=== PATIENT | male | born 1930 ===

== ENCOUNTER 2019-05-30 23:52 | Inpatient (IN) ==
[2019-05-31 00:54] LABS: Basophils # (auto) 0.03 K/uL (0-0.2); Basophils % (auto) 0.5 %; Eosinophils # (auto) 0.13 K/uL (0-0.5); Eosinophils % (auto) 2.1 %; Hematocrit (blood only) 37.8 % (42-52); Hemoglobin 12.7 g/dL (14.0-18.0); Immature Granulocytes # (auto) 0.02 K/uL (0.00-0.02); Immature Granulocytes % (auto) 0.3 %; Lymphocytes # (auto) 2.46 K/uL (1.2-3.4); Lymphocytes % (auto) 40.3 %; Mean Corpuscular Hemoglobin 31.4 pg (25-34); Mean Corpuscular Hgb Conc 33.6 g/dL (32-36); Mean Corpuscular Volume 93.6 fL (80-100); Mean Platelet Volume 10.3 fL (7.4-10.4); Monocytes % (auto) 13.1 %; Neutrophils # (auto) 2.67 K/uL (1.4-6.5); Neutrophils % (auto) 43.7 %; Platelet Count 215 K/uL (130-400); RDW Coefficient of Variation 13.2 % (11.5-14.5); RDW Standard Deviation 45.5 fL (36.4-46.3); Red Blood Count 4.04 M/uL (4.7-6.1); White Blood Count 6.11 K/uL (4.8-10.8)
[2019-05-31 01:05] LABS: Partial Thromboplastin Time 26.4 Seconds (21.0-31.0); Prothrombin Time 10.4 Seconds (9.0-12.0)
[2019-05-31 01:18] LABS: Alanine Aminotransferase 21 U/L (12-78); Albumin Level 3.5 gm/dl (3.4-5.0); Alkaline Phosphatase 61 U/L (45-117); Aspartate Aminotransferase 18 U/L (15-37); BUN Creatinine Ratio 18.3 (10-20); Bilirubin,Total 0.6 mg/dl (0.2-1); Blood Urea Nitrogen 15 mg/dl (7-18); Calcium 9.2 mg/dl (8.5-10.1); Carbon Dioxide 29 mmol/L (21-32); Chloride 100 mmol/L (98-107); Creatinine Clr Calc Pharmacy 43.6 ml/min; Est GFR (Non-African American) 79.4; Globulin 3.6 gm/dl (2.5-4.0); Glucose 86 mg/dl (70-99); Magnesium 2.2 mg/dl (1.8-2.4); Potassium 4.9 mmol/L (3.5-5.1); Sodium 135 mmol/L (136-145); Total Protein 7.1 gm/dl (6.4-8.2); Troponin I < 0.015 ng/ml (0-0.045)
[2019-05-31] MEDS ORDERED: PHARMACIST DISCHARGE MED REC CONSULT PRN (03:46)
[2019-05-31] MEDS ORDERED: ACETAMINOPHEN 325 MG TAB PO PRN (03:46)
[2019-05-31] MEDS ORDERED: NITROGLYCERIN SL 0.4 MG/TAB TAB SL PRN (03:46)
[2019-05-31] MEDS ORDERED: POLYETHYLENE (MIRALAX) 17 GM PACK PO PRN (03:46)
[2019-05-31] MEDS ORDERED: ONDANSETRON INJ 2 MG/ML 2 ML VIAL IV PRN (03:46)
--- NOTE | 2019-05-31 04:45 | Emergency Department Note ---
Entered by Darius Allen acting as a scribe for History of Present Illness General Chief complaint: Leg Weakness, Bilateral Stated complaint: LEG WEAKNESS Time Seen by Provider: 05/30/19 23:55 Source: family History of Present Illness Onset (ago): hour(s) (12) Location: lower extremity, left and right Pain Consistency: + other (worsening) Quality: + other (weakness) Associated symptoms: + denies other symptoms (difficulty eating, difficulty drinking, and difficulty swallowing) and + other (dyness in the mouth) The patient is an 89 y/o male who presents to the ED w/ CC of worsening, bilateral leg weakness beginning 12 hours ago. The patient is able to understand Surinamese but has difficulty speaking it. The history was presented by his farhan bynum. She states the patient is normally very active and does exercises daily. The daughter reports 12 hours ago he had weakness in his legs and could not lift his legs or balance on his own. She notes he was also not able to walk. The daughter states he had a period later in the day where he was able to walk with the assistance of his . She notes since then, his weakness has worsened, and he tells her it is equal in his legs. She reports he normally walks with a cane. The daughter notes he is also complaining of dryness of the mouth. She states he is acting at baseline neurologically. The daughter reports he is right handed. She notes his PCP is Dr. Quezada. The daughter denies a past medical and surgical history, difficulty eating, difficulty drinking, and difficulty swallowing. Home Medications Home Medications Medication Instructions Recorded Confirmed Type calcium carbonate [Calcium 600] 600 mg PO DAILY 05/31/19 05/31/19 History spanglsx-qmn-sctil-vit K-lycop 1 tab PO DAILY 05/31/19 05/31/19 History [Men's 50 Plus Multivitamin] Allergies Allergy/AdvReac Type Severity Reaction Status Date / Time No Known Allergies Allergy Verified 05/31/19 00:22 Past Med/Surg History Medical History No pertinent past medical history Surgical History No pertinent past surgical history Family History Other No pertinent family history Social History Preferred Language: Other Beliefs That Will Affect Care: None Current Living Situation: Family Feels Safe at Home: Yes Safety Concerns: Feels Safe At This Time Smoking Status: Never smoker Hx Alcohol Use: No Hx Substance Use: No Review of Systems See HPI for pertinent positives & negatives. and A total of 10 systems reviewed and were otherwise negative Physical Exam Vital Signs Vital Signs - 24 hr 05/30/19 23:59 05/31/19 01:28 Temperature 36.5 C Temperature Source Oral Sepsis Recent Fever Within 48 Hours No Sepsis New/Unexplained Change in Mental Status No Sepsis Action Taken by Nursing No Action Required Pulse Rate 70 Pulse Rate [Right Finger] 65 Pulse Rhythm Regular Pulse Rhythm [Right Finger] Regular Pulse Strength Normal Pulse Strength [Right Finger] Normal Respiratory Rate 16 16 Respiratory Effort / Characteristics Non-Labored Non-Labored Respiratory Depth Normal Normal Respiratory Pattern Regular Regular Blood Pressure 185/105 H Blood Pressure [Right Arm] 167/90 H Blood Pressure Mean 131 Blood Pressure Mean [Right Arm] 115 Blood Pressure Position [Right Arm] Lying Pulse Oximetry 98 98 Oxygen Delivery Method Room Air Room Air HEENT: Head - normocephalic and atraumatic. Pupils are equal, round, and reactive to light. Extraocular eye muscles are intact and sclera are anicteric. Ears - bilaterally patent canals with noninjected tympanic membranes and no evidence of hemotympanum. Nose - moist nasal mucosa without discharge. Mouth - moist buccal mucosa. Oropharynx is nonerythematous and there is no tonsillar exudate or edema noted. Neck: Supple; no JVD, nuchal rigidity, cervical lymphadenopathy, or auscultated bruits. Heart: Regular rate and rhythm. There is a normal S1 and S2 with no murmurs, clicks, or gallops appreciated. Lungs: Clear to auscultation bilaterally with no wheezes, rales, or rhonchi. Abdomen: Soft, completely nontender, nondistended, with good bowel sounds. There are no palpable pulsatile masses or hepatosplenomegaly. There is no guarding, rigidity, or rebound noted. Extremities: No evidence of cyanosis, clubbing, or edema. There are easily palpable peripheral pulses. Neuro:The patient is awake and alert, oriented to day, time, and place. Muscle strength is 5/5 in all 4 extremities. The patient has equal e learning manager strength and equal pedal push and pull. There are no cerebellar signs. Cranial nerves 2-12 are intact. Patient appears unsteady with ambulation although he is easily able to toe walk. Course 0004: The patient was evaluated in room A10. A complete history and physical examination were performed. A stroke protocol was performed. Nursing notes and previous electronic medical records were reviewed. IV lock was established and labs were drawn as above. The patient will go for CT scan of the brain. 0157: Upon reevaluation, I discussed findings and results with the patient and h is family. They verbalized agreement of the treatment plan. The patient will be evaluated for further management and care. 0202: I spoke with Dr. Pederson of the [facility]. The patient will be evaluated for further management and care. Medical Decision Making Differential Diagnosis Differential diagnosis includes: stroke, electrolyte abnormality, hypoglycemia, hydrocephalus. Medical Records Attestation: I reviewed the patient's medical records. Home Medications Current Medication List: was personally reviewed by me Laboratory Data Attestation: I reviewed the patient's lab results. Result diagrams: 05/31/19 00:37 05/31/19 00:37 Lab Results 05/31/19 05/31/19 05/31/19 Range/Units 00:37 00:37 00:37 WBC 6.11 (4.8-10.8) K/uL RBC 4.04 L (4.7-6.1) M/uL Hgb 12.7 L (14.0-18.0) g/dL Hct 37.8 L (42-52) % MCV 93.6 (80-100) fL MCH 31.4 (25-34) pg MCHC 33.6 (32-36) g/dL RDW Std Deviation 45.5 (36.4-46.3) fL RDW Coeff of Collin 13.2 (11.5-14.5) % Plt Count 215 (130-400) K/uL MPV 10.3 (7.4-10.4) fL Immature Gran % (Auto) 0.3 % Neut % (Auto) 43.7 % Lymph % (Auto) 40.3 % Duc[place]ne % (Auto) 13.1 % Eos % (Auto) 2.1 % Baso % (Auto) 0.5 % Immature Gran # (Auto) 0.02 (0.00-0.02) K/uL Neut # (Auto) 2.67 (1.4-6.5) K/uL Lymph # (Auto) 2.46 (1.2-3.4) K/uL [place]ne # (Auto) 0.80 H (0.11-0.59) K/uL Eos # (Auto) 0.13 (0-0.5) K/uL Baso # (Auto) 0.03 (0-0.2) K/uL PT 10.4 (9.0-12.0) Seconds INR 1.0 (0.9-1.1) APTT 26.4 (21.0-31.0) Seconds PTT Ratio 1.0 Sodium 135 L (136-145) mmol/L Potassium 4.9 (3.5-5.1) mmol/L Chloride 100 (98-107) mmol/L Carbon Dioxide 29 (21-32) mmol/L Anion Gap 6.0 (3-11) BUN 15 (7-18) mg/dl Creatinine 0.81 (0.6-1.4) mg/dl Est Cr Clr Drug Dosing 43.6 ml/min Est GFR ( Amer) 92.0 Est GFR (Non-Af Amer) 79.4 BUN/Creatinine Ratio 18.3 (10-20) Glucose 86 (70-99) mg/dl Calcium 9.2 (8.5-10.1) mg/dl Magnesium 2.2 (1.8-2.4) mg/dl Total Bilirubin 0.6 (0.2-1) mg/dl AST 18 (15-37) U/L ALT 21 (12-78) U/L Alkaline Phosphatase 61 (45-117) U/L Troponin I < 0.015 (0-0.045) ng/ml Total Protein 7.1 (6.4-8.2) gm/dl Albumin 3.5 (3.4-5.0) gm/dl Globulin 3.6 (2.5-4.0) gm/dl Albumin/Globulin Ratio 1.0 (0.9-2) Specimen Hemolysis Imaging Data Radiologist's Impression: Radiology results as stated below per my review and the [facility] radiologist's interpretation: CT HEAD: Involutional and chronic small vessel ischemic changes. No ICH, mass effect, or edema. No evidence of acute territorial infarct. No skull fracture. Sinuses and mastoid air cells are clear. Radiologist: Renetta Ayala M.D. Study ready at 00:56 and initial results transmitted at 01:14 ECG Data Attestation: I personally reviewed and interpreted this ECG as follows: Indication: weakness Rate (beats per minute): 68 Rhythm: normal sinus Findings: no PAC, no PVC, no ST depression, no ST elevation, no acute ischemic change and no ectopy Blood Pressure Blood Pressure Findings: Elevated blood pressure Blood Pressure Disposition: further management by hospitalist MDM Narrative The patient is an 89 y/o male who presents to the ED w/ CC of worsening, giuliana ateral leg weakness beginning 12 hours ago. The patient is normally very active and ambulates without much difficulty. He does use a cane. The family noted over the past 12-24 hours that the patient was quite unsteady on his feet and had to hold onto things to get around. He described feeling weak in his legs. CT scan of the brain was unremarkable. On my neurological testing, the patient's muscle strength the pedal push and pull was completely normal. He was able to stand on his toes without heel drop. However, when we attempted to ambulate the patient, he was only able to move about with a shuffling gait. This is abnormal for him. He had no upper extremity weakness noted. I discussed the case with the [facility] Hospitalist and they will evaluate for further management. Impression & Plan Gait instability, Complaints of leg weakness Discharge Plan Visit Data *Final* Discharge Date/Time: 05/31/19 03:10 Chief Complaint: Leg Weakness, Bilateral Stated Complaint: LEG WEAKNESS ED Provider: Abby Quintanilla Discharge Problem: Gait instability, Complaints of leg weakness Patient Disposition: Admitted As Inpatient Discharge Instructions Interventions: ED Discharge Assessment Last Done: 05/31/19 03:10 The scribe's documentation has been prepared under my direction and personally r eviewed by me in its entirety. I confirm that the note above accurately reflects all work, treatment, procedures, and medical decision making performed by me.
--- NOTE | 2019-05-31 04:57 | History and Physical Report ---
DATE OF ADMISSION: 05/31/2019 CHIEF COMPLAINT: Bilateral leg weakness. HISTORY OF PRESENT ILLNESS: This is an 89-year-old male with no significant past medical history, not on any medications except for multivitamins, who is otherwise active. Presents with ambulatory dysfunction, bilateral lower extremity weakness starting around 12:00 afternoon on 05/30/2019. The patient lives with daughter and . As per the family, the patient goes for shopping, daily walking and exercises. He is a little slow with age, but he can get around okay, he can walk fine, but since the afternoon he suddenly felt like he could not walk and he could not stand up properly. He was able to walk in the ER with assistance, but on his own, he is having difficulty ambulating. He has some head pressure, but denies any headache. Earlier, he had some dizziness. Denies any blurred visions, no earache, no runny nose, no sore throat, no difficulty swallowing. He ate his dinner okay. Swallowing okay. Speech is clear. No cough. No recent fever, chills. No chest pain, no shortness of breath, no nausea, no vomiting, no abdominal pain. Normal bowel and bladder movements. Moved his bowels today evening. Cooper some pressure like feeling in the belly, but is able to move his bowels, no blood in the stools. Normal bladder movements. No hematuria, no burning micturition, no swelling. Says once in a while he gets leg swellings, but keeping the legs elevated the swelling goes down and currently there is no swelling, no rash. He does not bleed or bruise easily.Denies any back pain. Recently also on 04/30/2019, last month, he had a carotid Doppler which showed less than 50% stenosis of both the right and left internal carotid artery. Currently resting comfortably and hemodynamically stable except blood pressure running slightly on the higher side. ALLERGIES: No known drug allergies. PAST SURGICAL HISTORY: No surgeries. MEDICATIONS: Multivitamins and calcium tablets. FAMILY HISTORY: No significant family history. SOCIAL HISTORY: No smoking, no alcohol. Lives with his daughter. REVIEW OF SYSTEMS: As per HPI. Rest of the review of systems negative. PHYSICAL EXAMINATION: GENERAL: The patient is old and frail, not in acute distress. VITAL SIGNS: Temperature 36.5, pulse 65, respiratory rate 16, blood pressure 167/90, oxygen 98% on room air. HEENT: No pallor, no icterus. Pupils equal, round, and reactive to light. Extraocular muscles intact. Oral mucosa moist. NECK: No JVD, no carotid bruit, no neck masses. CARDIOVASCULAR: S1, S2 heard, regular rate and rhythm, no murmur, no gallop. RESPIRATORY SYSTEM: Normal AP diameter. No accessory muscle use. No wheezing, no crackles. ABDOMEN: Soft, bowel sounds present, nontender. No distention. CENTRAL NERVOUS SYSTEM: Cranial nerves II-XII grossly intact. Power 5/5 in all extremities. Sensation is intact, position sense intact. Coordination of movements normal. Nfsfmw-ze-gdzb test normal. No pronator drift. Uluu-wp-rvuf test normal. Babinski negative. Romberg negative. Gait is very slow and needs assistance. Bilateral straight leg test negative. EXTREMITIES: No edema, no erythema. LABORATORY DATA: WBC 6.1, hemoglobin 12.7, hematocrit 37.8, platelets 215. PT 10.4, INR 1, APTT 26.4. Sodium 135, potassium 4.9, chloride 100, bicarbonate 29, BUN 15, creatinine 0.8, serum glucose 86, calcium 9.2, magnesium 2.2, total bilirubin 0.6, AST 18, ALT 21, alkaline phosphatase 61. Troponin I less than 0.015. EKG: Normal sinus rhythm, rate of 60, no acute ST changes seen. ASSESSMENT AND PLAN: This is an 89-year-old male who presents with bilateral lower extremity weakness and ambulatory dysfunction. 1. Bilateral lower extremity weakness and ambulatory dysfunction. CT of the head is unremarkable, but we will wait for official report. We will do the full stroke workup with MRI scan and echocardiogram, neuro evaluation, PT/OT evaluation, speech evaluation. He recently had a carotid Doppler several months ago in April as outpatient and it showed less than 50% stenosis in the bilateral internal carotid arteries. Monitor in the tele floor.Will start him on aspirin, follow lipid profile and hba1c levels. 2. Hypertension, not on any medication at home. Could be situational. We will monitor the blood pressure in the hospital. 3. Deep venous thrombosis prophylaxis, sequential compression devices. DISPOSITION: Closely monitor in the tele floor. Level 1 full code. Social service to help with discharge planning. [facility]
[2019-05-31] MEDS ORDERED: GADOBUTROL 30ML VIAL IV PRN (05:05)
[2019-05-31] MEDS: SODIUM CHLORIDE 0.9% 1000ML 1,000 ML IV SCH ×2 (05:43→19:27)
[2019-05-31 05:51] LABS: Basophils # (auto) 0.03 K/uL (0-0.2); Basophils % (auto) 0.5 %; Eosinophils # (auto) 0.22 K/uL (0-0.5); Eosinophils % (auto) 3.8 %; Hematocrit (blood only) 37.7 % (42-52); Hemoglobin 12.8 g/dL (14.0-18.0); Immature Granulocytes # (auto) 0.01 K/uL (0.00-0.02); Immature Granulocytes % (auto) 0.2 %; Lymphocytes # (auto) 2.14 K/uL (1.2-3.4); Mean Corpuscular Hemoglobin 31.5 pg (25-34); Mean Corpuscular Volume 92.9 fL (80-100); Monocytes # (auto) 0.61 K/uL (0.11-0.59); Monocytes % (auto) 10.6 %; Neutrophils # (auto) 2.77 K/uL (1.4-6.5); Neutrophils % (auto) 47.9 %; Platelet Count 230 K/uL (130-400); RDW Coefficient of Variation 13.1 % (11.5-14.5); RDW Standard Deviation 44.8 fL (36.4-46.3); Red Blood Count 4.06 M/uL (4.7-6.1); White Blood Count 5.78 K/uL (4.8-10.8)
[2019-05-31 06:22] LABS: BUN Creatinine Ratio 16.4 (10-20); Calcium 8.8 mg/dl (8.5-10.1); Creatinine Clr Calc Pharmacy 47.3 ml/min; Est GFR (African American) 92.9; Est GFR (Non-African American) 80.2; Potassium 4.1 mmol/L (3.5-5.1)
--- NOTE | 2019-05-31 06:48 | Magnetic Resonance Report ---
MR brain wo/w con HISTORY: 89 years-old Male cva acute weakness COMPARISON: Head CT of same day TECHNIQUE: Multiplanar multisequence MRI of the brain was obtained both with and without the use of 5 .0 mL Gadavist FINDINGS: [employer] localizer images demonstrate no gross extracranial abnormality. 8 mm focus of restricted diffus ion involves the centrum semiovale right frontal lobe, image 16 series 4 with increased T2/FLAIR sign al and decreased signal on ADC map. No acute or subacute territorial infarct, acute intracranial hemo rrhage, midline shift, abnormal extra axial collection, hydrocephalus or intracranial mass. Age-relat ed involutional changes with ex vacuo ventriculomegaly. Moderate to extensive T2/FLAIR signal abnorma lities about the white matter suggest chronic microvascular ischemic disease. Encephalomalacia and gl iosis involves the superior right cerebellar hemisphere compatible with area of remote infarct. There is no abnormal intra-axial or extra-axial enhancement identified. Major flow voids at the level of the skull base appear patent. Trace right mastoid effusion. Mild muc osal thickening of the nasal turbinates and ethmoid air cells. Leftward bowing and spurring of the na cydney septum. Right helen bullosa. Prior bilateral cataract repair. Skull and soft tissues are within normal limits. IMPRESSION: 1. Subcentimeter acute lacunar infarction of the centrum semiovale right frontal lobe. No acute intra cranial hemorrhage, midline shift or acute territorial infarct. 2. Age-related involutional changes with suggestion of chronic microvascular ischemic disease. 3. No abnormal enhancement. The above report was generated using voice recognition software. It may contain grammatical, syntax o r spelling errors. Electronically signed by: Jaiden Verdugo M.D. 05/31/2019 6:47 AM
--- NOTE | 2019-05-31 07:06 | CT Scan Report ---
HEAD CT NONCONTRAST CT DOSE: 537.48 mGy.cm HISTORY: Stroke evaluation TECHNIQUE: Multiaxial CT images of the head were performed without the use of intravenous contrast. A utomated exposure control was utilized for this study. A dose lowering technique was utilized adheri ng to the principles of ALARA. Comparison: None. Findings: The paranasal sinuses and mastoid air cells are clear. The calvarium and skull base are int act. There is no mass, hematoma, midline shift, acute infarct. White matter hypodensity is nonspecifi c but suggestive of microvascular ischemic change. The ventricles and sulci demonstrate mild age-rela david involutional changes. Impression: No acute intracranial abnormality. Atrophy and microvascular ischemic changes. Electronically signed by: Juve Shabazz M.D. 05/31/2019 7:05 AM
[2019-05-31 07:55] LABS: Estimated Average Glucose 117 mg/dl; Hemoglobin A1C 5.7 % (4.5-5.6)
[2019-05-31] MEDS: CEROVITE ADV FORMULA TAB PO SCH (09:19)
[2019-05-31] MEDS: ASPIRIN 81 MG ECTAB PO SCH (09:19)
--- NOTE | 2019-05-31 14:17 | Neurology Consultation ---
Date of Consultation May 31, 2019 Assessment & Plan (1) Ischemic stroke: 1. MRI with acute lacunar infarction of the centrum semiovale right frontal lobe. 2. TTE- EF 60-65% no ASD 3. outside carotid with <50 % stenosis 4. no medication as outpatient agree with start of aspirin 81 mg 5. blood pressure has come down naturally would not recommend tight control- PCP to adjust if needed as outpatient 6. PT/OT speech- discharge needs 7. fall precautions and walker training ok to discharge once medically stable neurology follow up in 4-6 weeks after discharge from rehab Chayito Hoyos PAC Supervising Physician Co-Signing Physician Notes I have seen and discussed above patient with Dr Miguel Davis, neurology I have seen Mr. Quezada in the presence of his and daughter, reviewed his imaging studies, discussed the case with Chayito Hoyos PA-C and agree that this man has had an acute probable primary small vessel event involving his right frontal area with resultant clumsiness probably of the left leg but interpreted as bilateral leg weakness. Currently he is sleepy primarily due to being up most of the night here in the hospital and evaluation is difficult but I think at most there is an equivocal left upgoing toe sign and otherwise a pretty normal exam but I did not test his gait At this point I agree with simple aspirin and low-dose. I will see him tomorrow. The algorithmic recommendations of maximizing control of his risk factors with vigorous lipid-lowering therapy and antihypertensive therapy may not be appropriate in a man of his age and I think this needs to be addressed by his primary care physician Dr. Gabriella Quezada in follow-up after this hospitalization In the interim we will allow some permissive hypertension particularly in light of his age, recommend physical therapy evaluation and potentially he might need an inpatient rehabilitation stay Again we will check back tomorrow review how he is doing and go from there Miguel Davis MD History of Present Illness Reason for Consultation: bilateral LE weakness Requesting Physician: Bean Middleton MD Attending Physician: Bean Middleton MD History of Present Illness Andres is an 89 year old male [place]ian speeching with benign PMH, not on any medications except for multivitamins. He presents for evaluation of bilateral lower extremity weakness starting around 12:00 afternoon on 05/30/2019 which started with dizziness. He lives with daughter and . He does stay active with shopping, walking and exercises daily. He is a little slow with age, but he can get around okay, he can walk fine at baseline. He was able to walk in the ER with assistance, but on his own, he is having difficulty ambulating. He has some head pressure, but denies any headache.He did have some pressure like feeling in the belly, but is able to move his bowels. He had a carotid doppler ordered by his PCP 04/30/2019, showing less than 50% stenosis of both the right and left internal carotid artery. He was up walking to the bathroom with nursing using a walker and appeared to have a somewhat shuffling gait. denies CP, SOB, abdominal pain, N, V, swallowing issues speech issues, vision changes. Allergies Allergy/AdvReac Type Severity Reaction Status Date / Time No Known Allergies Allergy Verified 05/31/19 00:22 Home Medications Home Medications Medication Instructions Recorded Confirmed Type calcium carbonate [Calcium 600] 600 mg PO DAILY 05/31/19 05/31/19 History ttjuvczv-rre-wanzo-vit K-lycop 1 tab PO DAILY 05/31/19 05/31/19 History [Men's 50 Plus Multivitamin] Patient History Medical History No pertinent past medical history Surgical History No pertinent past surgical history Family History Other No pertinent family history Social History Preferred Language: Other Communication Ability: Effective Beliefs That Will Affect Care: None Current Living Situation: Family Feels Safe at Home: Yes Safety Concerns: Feels Safe At This Time Smoking Status: Never smoker Hx Alcohol Use: No Hx Substance Use: No Physical Exam Physical Exam: Physical Exam: Constitutional: appearance nourished, healthy and normal Ears, Nose, Mouth and Throat: mucous membranes moist, no injection and skin normal, eyes normal Cardiovascular: normal S-1 and S-2 and regular rate and rhythm Respiratory: clear to auscultation (CTA) and no rales, rhonchi or wheeze Musculoskeletal: no peripheral edema and good distal pulses Skin: no stigmata of neurocutaneous disease noted and normal and intact Eyes: extraocular muscles intact (EOMI) and pupils equal, round and reactive to light (PERRL) NEUROLOGIC EXAMINATION: Mental status: Alert and interactive Oriented to person Speech fluent with no evidence of aphasia, speech seems fluent with talking with daughter Cranial Nerves smile eye brow raise symmetric Reflexes: Deep tendon reflexes were symmetrical and graded 2/5. Sensory: to light or cool touch Coordination: finger to nose no bi pass Gait/Stance: Posture normal. Gait normal: walking with walker, small shuffling tandem gait. Motor: Negative for pronator drift of out stretched arms with eyes closed. Strength: Normal - 5/5 all extremities Results & Data Vital Signs (Past 12 Hours) Vital Signs Temp Pulse Pulse Pulse Pulse Resp BP 05/31/19 11:59 36.9 C 70 18 05/31/19 08:00 36.7 C 63 20 05/31/19 03:45 05/31/19 03:35 37 C 69 20 05/31/19 03:10 63 16 159/82 H BP BP Pulse Ox 05/31/19 11:59 134/73 98 05/31/19 08:00 178/85 H 99 05/31/19 03:45 164/84 H 05/31/19 03:35 178/94 H 99 05/31/19 03:10 99 Laboratory Results Abnormal lab results 05/31/19 05/31/19 05/31/19 Range/Units 00:37 00:37 05:22 RBC 4.04 L 4.06 L (4.7-6.1) M/uL Hgb 12.7 L 12.8 L (14.0-18.0) g/dL Hct 37.8 L 37.7 L (42-52) % [place] # (Auto) 0.80 H 0.61 H (0.11-0.59) K/uL Sodium 135 L (136-145) mmol/L Hemoglobin A1c (4.5-5.6) % 05/31/19 Range/Units 05:22 RBC (4.7-6.1) M/uL Hgb (14.0-18.0) g/dL Hct (42-52) % [place] # (Auto) (0.11-0.59) K/uL Sodium (136-145) mmol/L Hemoglobin A1c 5.7 H (4.5-5.6) % Diagnostic Findings CT head-No acute intracranial abnormality. Atrophy and microvascular ischemic changes. MRI brain-. Subcentimeter acute lacunar infarction of the centrum semiovale right frontal lobe. No acute intracranial hemorrhage, midline shift or acute territorial infarct. Age-related involutional changes with suggestion of chronic microvascular ischemic disease. No abnormal enhancement. EF 60-65% no ASD
--- NOTE | 2019-05-31 15:38 | Hospitalist Progress Note ---
Date of Service May 31, 2019 Assessment & Plan (1) Ischemic stroke: Admitted with the sudden onset of weakness involving both the legs without any lateralizing signs MRI of the head did show acute lacunar infarct of the centrum semiovale right frontal lobe No other neuro symptoms No echo and/or carotid ultrasound exam abnormality Appreciate neurology input and recommendation Started 1 oral aspirin and will continue We will get PT OT and speech evaluation May need placement depending on PT recommendation Present on Admission?: Yes (2) Gait instability: As above (3) Complaints of leg weakness: Clinically did not have any weakness involving any of the lower extremities No evidence of acute arthritis PT and OT evaluation DVT prophylaxis SCDs Increase ambulation Likely discharge tomorrow Subjective 05/31 The patient was seen and examined in telemetry unit He was admitted admitted sudden loss of power involving the legs resulting in frequent falls He denies any other symptoms whatsoever No visual symptoms, no headache, no weakness involving any side of the body, no shortness of breath and no palpitation and no nausea no vomiting Review of Systems Review of Systems: All systems reviewed and are unremarkable except as noted below Neurologic: Moving all limbs equally and denies any sensory abnormality Physical Exam Physical Exam: Lying in bed comfortably Constitutional: no acute distress and not ill appearing Eyes: PERRL, conjunctivae normal, anicteric sclerae ENMT: external ear and nose normal, oropharynx normal Neck: trachea midline, no thyromegaly Respiratory: normal respiratory effort Auscultation: lungs clear to auscultation bilaterally; no crackles Cardiovascular: Rate/Rhythm: regular rate and regular rhythm Gastrointestinal (Abdomen): Inspection/Auscultation: abdomen normal to inspection and normal bowel sounds Musculoskeletal: No acute arthritis involving any of the joints Neurologic: moves all extremities; no focal motor deficits Alert, awake and oriented x3 Lymphatic: no cervical or axillary lymphadenopathy Results & Data Vital Signs (Past 12 Hours) Vital Signs Temp Pulse Pulse Pulse Resp BP BP 05/31/19 11:59 36.9 C 70 18 134/73 05/31/19 08:00 36.7 C 63 20 178/85 H 05/31/19 03:45 164/84 H 05/31/19 03:35 37 C 69 20 178/94 H Pulse Ox 05/31/19 11:59 98 05/31/19 08:00 99 05/31/19 03:45 05/31/19 03:35 99 Laboratory Results Short CBC 05/31/19 05/31/19 Range/Units 00:37 05:22 WBC 6.11 5.78 (4.8-10.8) K/uL Hgb 12.7 L 12.8 L (14.0-18.0) g/dL Hct 37.8 L 37.7 L (42-52) % Plt Count 215 230 (130-400) K/uL BMP 05/31/19 05/31/19 00:37 05:22 Sodium 135 L 136 Potassium 4.9 4.1 D Chloride 100 100 Carbon Dioxide 29 28 BUN 15 13 Creatinine 0.81 0.79 Glucose 86 94 Calcium 9.2 8.8 Cardiac Enzymes 05/31/19 Range/Units 00:37 Troponin I < 0.015 (0-0.045) ng/ml Liver Function 05/31/19 Range/Units 00:37 Total Bilirubin 0.6 (0.2-1) mg/dl AST 18 (15-37) U/L ALT 21 (12-78) U/L Alkaline Phosphatase 61 (45-117) U/L Albumin 3.5 (3.4-5.0) gm/dl Medications Administered Current Inpatient Medications Acetaminophen (Tylenol) 650 mg PO Q4H PRN PRN Reason: Pain or Fever Stop: 06/30/19 03:45 Aspirin (Ecotrin Ectab) 81 mg PO QAM [facility] Stop: 06/30/19 08:59 Last Admin: 05/31/19 09:19 Dose: 81 mg Documented by: Gadobutrol (Gadavist 30ml) 5 ml IV ONCE PRN PRN Reason: Interaction Checking Stop: 06/04/19 05:04 Last Admin: 05/31/19 05:06 Dose: 5 ml Documented by: Sodium Chloride (Nss 1000ml) 1,000 mls @ 75 mls/hr IV .[id number] [facility] Stop: 06/30/19 16:00 Last Admin: 05/31/19 05:43 Dose: 75 mls/hr Documented by: Miscellaneous Information (Pharmacist Discharge Med Rec Consult) 1 ea N/A UD PRN PRN Reason: Consult Stop: 06/30/19 03:45 Multivitamins/Minerals (Multivitamin W/ Minerals Tab) 1 tab PO DAILY [facility] Stop: 09/25/19 08:59 Last Admin: 05/31/19 09:19 Dose: 1 tab Documented by: Nitroglycerin (Nitrostat) 0.4 mg SL UD PRN PRN Reason: Chest Pain Stop: 06/30/19 03:45 Ondansetron HCl (Zofran) 4 mg IV Q6H PRN PRN Reason: Nausea Stop: 06/30/19 03:45 Polyethylene Glycol (Miralax Powder Packet) 17 gm PO DAILY PRN PRN Reason: Constipation Stop: 06/30/19 03:45
[2019-06-01 07:04] LABS: Basophils # (auto) 0.02 K/uL (0-0.2); Basophils % (auto) 0.4 %; Eosinophils # (auto) 0.17 K/uL (0-0.5); Hemoglobin 13.5 g/dL (14.0-18.0); Immature Granulocytes # (auto) 0.01 K/uL (0.00-0.02); Immature Granulocytes % (auto) 0.2 %; Lymphocytes # (auto) 1.66 K/uL (1.2-3.4); Lymphocytes % (auto) 29.3 %; Mean Corpuscular Hemoglobin 31.6 pg (25-34); Mean Corpuscular Hgb Conc 33.8 g/dL (32-36); Mean Corpuscular Volume 93.7 fL (80-100); Mean Platelet Volume 10.2 fL (7.4-10.4); Monocytes # (auto) 0.53 K/uL (0.11-0.59); Monocytes % (auto) 9.3 %; Neutrophils # (auto) 3.28 K/uL (1.4-6.5); Neutrophils % (auto) 57.8 %; Platelet Count 236 K/uL (130-400); RDW Coefficient of Variation 13.3 % (11.5-14.5); RDW Standard Deviation 45.5 fL (36.4-46.3); Red Blood Count 4.27 M/uL (4.7-6.1); White Blood Count 5.67 K/uL (4.8-10.8)
[2019-06-01 07:32] LABS: BUN Creatinine Ratio 10.6 (10-20); Calcium 8.9 mg/dl (8.5-10.1); Creatinine Clr Calc Pharmacy 43.1 ml/min; Est GFR (African American) 92.4; Est GFR (Non-African American) 79.8; Magnesium 2.1 mg/dl (1.8-2.4); Potassium 4.5 mmol/L (3.5-5.1)
[2019-06-01] MEDS: ASPIRIN 81 MG ECTAB PO SCH (08:26)
[2019-06-01] MEDS: SODIUM CHLORIDE 0.9% 1000ML 1,000 ML IV SCH (09:00)
[2019-06-01] MEDS: CEROVITE ADV FORMULA TAB PO SCH (10:31)
--- NOTE | 2019-06-01 10:32 | Hospitalist Progress Note ---
Date of Service June 01, 2019 Assessment & Plan (1) Ischemic stroke: Admitted with the sudden onset of weakness involving both the legs without any lateralizing signs MRI of the head did show acute lacunar infarct of the centrum semiovale right frontal lobe No other neuro symptoms No echo and/or carotid ultrasound exam abnormality Appreciate neurology input and recommendation Started 1 oral aspirin and will continue We will get PT OT and speech evaluation May need placement depending on PT recommendation Physical therapy recommended rehab Awaiting placement as of today Medically stable to be transferred (2) Gait instability: As above Ongoing problem with gait His legs give way on ambulation But the power in the extremities seems to be intact Will need physical therapy to improve his current medical condition (3) Complaints of leg weakness: Clinically did not have any weakness involving any of the lower extremities No evidence of acute arthritis PT and OT evaluation DVT prophylaxis SCDs Increase ambulation Likely discharge when accepted to a facility for rehab Subjective 05/31 The patient was seen and examined in telemetry unit He was admitted admitted sudden loss of power involving the legs resulting in frequent falls He denies any other symptoms whatsoever No visual symptoms, no headache, no weakness involving any side of the body, no shortness of breath and no palpitation and no nausea no vomiting 06/01 Patient was seen and examined in telemetry unit He complains to have dizziness and problem with walking but denies any other symptoms Denies any dysarthria, dysphagia, any headache and or blurred vision Review of Systems Review of Systems: All systems reviewed and are unremarkable except as noted below Musculoskeletal: + muscle weakness and + problem reported (Problem with ambulation); no joint pain Neurologic: + gait abnormality and + unsteadiness Moving all limbs equally with power about 5/5 bilaterally and denies any sensory abnormality Physical Exam Physical Exam: Lying in bed comfortably Constitutional: no acute distress and not ill appearing Eyes: PERRL, conjunctivae normal, anicteric sclerae ENMT: external ear and nose normal, oropharynx normal Neck: trachea midline, no thyromegaly Respiratory: normal respiratory effort Auscultation: lungs clear to auscultation bilaterally; no crackles Cardiovascular: Rate/Rhythm: regular rate and regular rhythm Gastrointestinal (Abdomen): Inspection/Auscultation: abdomen normal to inspection and normal bowel sounds Musculoskeletal: no cyanosis or clubbing, extremities motor strength 5/5 Neurologic: moves all extremities; no focal motor deficits Speech / Cognition: normal speech Motor/Sensory: no tremor Lymphatic: no cervical or axillary lymphadenopathy Results & Data Vital Signs (Past 12 Hours) Vital Signs Temp Pulse Pulse Resp BP BP Pulse Ox 06/01/19 07:43 36.8 C 62 18 151/69 H 96 06/01/19 03:55 36.8 C 63 18 155/83 H 96 06/01/19 00:01 66 05/31/19 23:34 36.9 C 67 16 174/84 H 99 Laboratory Results Short CBC 06/01/19 Range/Units 06:44 WBC 5.67 (4.8-10.8) K/uL Hgb 13.5 L (14.0-18.0) g/dL Hct 40.0 L (42-52) % Plt Count 236 (130-400) K/uL BMP 06/01/19 06:44 Sodium 139 Potassium 4.5 Chloride 106 Carbon Dioxide 29 BUN 8 D Creatinine 0.80 Glucose 92 Calcium 8.9 Medications Administered Current Inpatient Medications Acetaminophen (Tylenol) 650 mg PO Q4H PRN PRN Reason: Pain or Fever Stop: 06/30/19 03:45 Aspirin (Ecotrin Ectab) 81 mg PO QAM [facility] Stop: 06/30/19 08:59 Last Admin: 06/01/19 08:26 Dose: 81 mg Documented by: Gadobutrol (Gadavist 30ml) 5 ml IV ONCE PRN PRN Reason: Interaction Checking Stop: 06/04/19 05:04 Last Admin: 05/31/19 05:06 Dose: 5 ml Documented by: Sodium Chloride (Nss 1000ml) 1,000 mls @ 75 mls/hr IV .[id number] Stop: 06/30/19 16:00 Last Admin: 06/01/19 09:00 Dose: 75 mls/hr Documented by: Miscellaneous Information (Pharmacist Discharge Med Rec Consult) 1 ea N/A UD PRN PRN Reason: Consult Stop: 06/30/19 03:45 Multivitamins/Minerals (Multivitamin W/ Minerals Tab) 1 tab PO DAILY [facility] Stop: 06/30/19 08:59 Last Admin: 05/31/19 09:19 Dose: 1 tab Documented by: Nitroglycerin (Nitrostat) 0.4 mg SL UD PRN PRN Reason: Chest Pain Stop: 06/30/19 03:45 Ondansetron HCl (Zofran) 4 mg IV Q6H PRN PRN Reason: Nausea Stop: 06/30/19 03:45 Polyethylene Glycol (Miralax Powder Packet) 17 gm PO DAILY PRN PRN Reason: Constipation Stop: 06/30/19 03:45
[2019-06-01] MEDS ORDERED: STROKE PATIENT DISCHARGE STA (14:54)
--- NOTE | 2019-06-02 08:36 | Discharge Summary ---
Date of Service June 02, 2019 Admission HPI Per Admitting Provider DICTATED BY: Tulio Pederson MD DATE OF ADMISSION: 05/31/2019 CHIEF COMPLAINT: Bilateral leg weakness. HISTORY OF PRESENT ILLNESS: This is an 89-year-old male with no significant past medical history, not on any medications except for multivitamins, who is otherwise active. Presents with ambulatory dysfunction, bilateral lower extremity weakness starting around 12:00 afternoon on 05/30/2019. The patient lives with daughter and . As per the family, the patient goes for shopping, daily walking and exercises. He is a little slow with age, but he can get around okay, he can walk fine, but since the afternoon he suddenly felt like he could not walk and he could not stand up properly. He was able to walk in the ER with assistance, but on his own, he is having difficulty ambulating. He has some head pressure, but denies any headache. Earlier, he had some dizziness. Denies any blurred visions, no earache, no runny nose, no sore throat, no difficulty swallowing. He ate his dinner okay. Swallowing okay. Speech is clear. No cough. No recent fever, chills. No chest pain, no shortness of breath, no nausea, no vomiting, no abdominal pain. Normal bowel and bladder movements. Moved his bowels today evening. Avis some pressure like feeling in the belly, but is able to move his bowels, no blood in the stools. Normal bladder movements. No hematuria, no burning micturition, no swelling. Says once in a while he gets leg swellings, but keeping the legs elevated the swelling goes down and currently there is no swelling, no rash. He does not bleed or bruise easily.Denies any back pain. Recently also on 04/30/2019, last month, he had a carotid Doppler which showed less than 50% stenosis of both the right and left internal carotid artery. Currently resting comfortably and hemodynamically stable except blood pressure running slightly on the higher side. Admission Exam Per Admitting Provider GENERAL: The patient is old and frail, not in acute distress. VITAL SIGNS: Temperature 36.5, pulse 65, respiratory rate 16, blood pressure 167/90, oxygen 98% on room air. HEENT: No pallor, no icterus. Pupils equal, round, and reactive to light. Extraocular muscles intact. Oral mucosa moist. NECK: No JVD, no carotid bruit, no neck masses. CARDIOVASCULAR: S1, S2 heard, regular rate and rhythm, no murmur, no gallop. RESPIRATORY SYSTEM: Normal AP diameter. No accessory muscle use. No wheezing, no crackles. ABDOMEN: Soft, bowel sounds present, nontender. No distention. CENTRAL NERVOUS SYSTEM: Cranial nerves II-XII grossly intact. Power 5/5 in all extremities. Sensation is intact, position sense intact. Coordination of movements normal. [id number] test normal. No pronator drift. Vjkx-[id number] test normal. Babinski negative. Romberg negative. Gait is very slow and needs assistance. Bilateral straight leg test negative. EXTREMITIES: No edema, no erythema. Principal Diagnosis Bilateral leg weakness, Acute lacunar ischemic stroke involving centrum semiovale of the right frontal lobe Discharge Exam Constitutional no acute distress and not ill appearing Eyes PERRL, conjunctivae normal, anicteric sclerae ENMT external ear and nose normal, oropharynx normal Neck trachea midline, no thyromegaly Respiratory normal respiratory effort Auscultation: lungs clear to auscultation bilaterally; no crackles Cardiovascular Rate/Rhythm: regular rate and regular rhythm Gastrointestinal (Abdomen) Inspection/Auscultation: abdomen normal to inspection and normal bowel sounds Musculoskeletal no cyanosis or clubbing, extremities motor strength 5/5 Neurologic moves all extremities; no focal motor deficits Speech / Cognition: normal speech Motor/Sensory: no tremor Lymphatic no cervical or axillary lymphadenopathy Discharge Data Allergies Allergy/AdvReac Type Severity Reaction Status Date / Time No Known Allergies Allergy Verified 05/31/19 00:22 Consultations 05/31/19 01:59 ED Decision to Admit Stat 05/31/19 03:46 Consult Case Management - Discharge Planning Routine Consult Case Management - Discharge Planning Routine 05/31/19 08:00 Consult Neurology Routine Ordered Studies 05/31/19 00:22 CT head/brain wo con [facility] 05/31/19 03:46 MR brain wo/w con [facility] Hospital Course (1) Ischemic stroke: Admitted with the sudden onset of weakness involving both the legs without any lateralizing signs MRI of the head did show acute lacunar infarct of the centrum semiovale right frontal lobe No other neuro symptoms No echo and/or carotid ultrasound exam abnormality Appreciate neurology input and recommendation Started 1 oral aspirin and will continue We will get PT OT and speech evaluation May need placement depending on PT recommendation Physical therapy recommended rehab Awaiting placement as of today Medically stable to be transferred (2) Gait instability: As above Ongoing problem with gait His legs give way on ambulation But the power in the extremities seems to be intact Will need physical therapy to improve his current medical condition (3) Complaints of leg weakness: Clinically did not have any weakness involving any of the lower extremities No evidence of acute arthritis PT and OT evaluation DVT prophylaxis SCDs Increase ambulation Likely discharge when accepted to a facility for rehab Total Time Total Time Spent Total Time Spent (In Minutes): 35 minutes Total Time Includes: Examination of the Patient, Discharge Planning, Medication Reconciliation and Communication With Other Providers Discharge Plan Discharge Items Patient Disposition: Transfer Inpatient Rehab Fac Reason For Visit: BILATERAL LEG WEAKNESS Discharge Diagnosis: Bilateral leg weakness, Acute lacunar ischemic stroke involving centrum semiovale of the right frontal lobe Condition: Good Discharge Goals: Decrease discomfort, Improve function and Increase independence Activity: Resume your previous activity Non-emergency contact: Primary Care Provider Call non-emergency contact if: you have any medication questions and your symptoms worsen Follow-up/Referrals: Gabriella Quezada MD [Primary Care Provider] - (Please make an appointment within 1 week following discharge from the facility. Will need an appointment with urologist in about 4-6 weeks) Diet: Vegan (no animal product) Addtl Provider Instructions: Take precaution to avoid falls Only new medication is aspirin 81 mg daily Prescriptions: New aspirin [Ecotrin Low Strength] 81 mg Tablet,Delayed Release (Dr/Ec) 81 mg PO QAM 30 Days Qty: 30 RF: 0 Continued calcium carbonate [Calcium 600] 600 mg calcium (1,500 mg) Tablet 600 mg PO DAILY RF: 0 Men's 50 Plus Multivitamin 400-20-370 mcg Tablet 1 tab PO DAILY RF: 0 Stand-Alone Forms: Resource Data/Other Patient Handouts: Stroke Sx Discharge Orders: Discharge Order (Routine); Ordered 06/01/19 Ordered By: Bean Middleton Skilled Items Patient informed of condition?: Yes DNR: No Discharge Level of Care: Skilled Communicable Disease: No Discharge Prognosis: Stable Admission Data Admit Date/Time: 05/31/19 02:48 Attending Provider: Bean Middleton Admit Provider: Tulio Pederson Primary Care Provider: Gabriella Quezada Other Providers: Tulio Pederson ; Miguel Davis Service: Telemetry Other Interventions: Discharge Summary Assessment (RN) Last Done: 06/01/19 15:08 DC Date/Time DO NOT enter until pt leaves facility: 06/01/19 15:47
== END 2019-06-01 15:47 | DRG 66 ==
LOC: ED 23:52 → 2S 05-31 02:48

== ENCOUNTER 2019-07-29 02:21 | Inpatient (IN) ==
[2019-07-29] MEDS ORDERED: ADENOSINE IV SOLN 3 MG/ML 2 ML VIAL IV STA (02:31)
[2019-07-29] MEDS ORDERED: ADENOSINE IV SOLN 3 MG/ML 2 ML VIAL IV ONE (02:33)
[2019-07-29] MEDS ORDERED: AMIODARONE IV BOLUS / DRIP IV STA (02:45)
[2019-07-29] MEDS ORDERED: AMIODARONE / D5W 150 MG/100 ML BAG IV STA (02:45)
[2019-07-29] MEDS ORDERED: SODIUM CHLORIDE 0.9% 500 ML IV SCH (02:45)
[2019-07-29] MEDS ORDERED: AMIODARONE / D5W 360 MG/200 ML BAG IV SCH ×2 (02:45→08:45)
[2019-07-29 03:14] LABS: Basophils # (auto) 0.02 K/uL (0-0.2); Basophils % (auto) 0.4 %; Eosinophils # (auto) 0.18 K/uL (0-0.5); Eosinophils % (auto) 3.4 %; Hematocrit (blood only) 32.4 % (42-52); Hemoglobin 10.8 g/dL (14.0-18.0); Immature Granulocytes # (auto) 0.01 K/uL (0.00-0.02); Immature Granulocytes % (auto) 0.2 %; Lymphocytes # (auto) 1.43 K/uL (1.2-3.4); Lymphocytes % (auto) 26.7 %; Mean Corpuscular Hemoglobin 31.6 pg (25-34); Mean Corpuscular Hgb Conc 33.3 g/dL (32-36); Mean Corpuscular Volume 94.7 fL (80-100); Mean Platelet Volume 9.9 fL (7.4-10.4); Monocytes # (auto) 0.71 K/uL (0.11-0.59); Monocytes % (auto) 13.3 %; Platelet Count 183 K/uL (130-400); RDW Standard Deviation 45.1 fL (36.4-46.3); Red Blood Count 3.42 M/uL (4.7-6.1); White Blood Count 5.35 K/uL (4.8-10.8)
[2019-07-29 03:30] LABS: Albumin Level 2.7 gm/dl (3.4-5.0); BUN Creatinine Ratio 23.1 (10-20); Calcium 7.6 mg/dl (8.5-10.1); Creatinine Clr Calc Pharmacy 53.3 ml/min; Est GFR (African American) 92.4; Est GFR (Non-African American) 79.8; Magnesium 1.8 mg/dl (1.8-2.4); Potassium 4.2 mmol/L (3.5-5.1)
[2019-07-29 03:39] LABS: Albumin Globulin Ratio 0.9 (0.9-2); Bilirubin,Total 0.4 mg/dl (0.2-1); Globulin 2.9 gm/dl (2.5-4.0); Thyroid Stimulating Hormone 1.36 uIu/ml (0.300-4.500); Total Protein 5.6 gm/dl (6.4-8.2); Troponin I 0.04 ng/ml (0-0.045)
[2019-07-29] MEDS ORDERED: MAGNESIUM SULFATE / D5W 1 GM/100 ML BAG IV ONE (03:59)
[2019-07-29] MEDS ORDERED: OPTIRAY 320 125ml IV PRN (04:15)
--- NOTE | 2019-07-29 05:42 | History & Physical Report ---
Date of Service July 29, 2019 Assessment & Plan (1) Syncope: Secondary to tachyarrhythmia (SVT/NSVT) hx CVA on aspirin hypertension, BP on the lower side BPH, continue Avodart Rx from urologist Acute on chronic anemia, hemoglobin drop from baseline, stool Hemoccult done at the ER was negative Hyperglycemia likely prediabetes (hemoglobin A1c of 5.8 last April 2019 ) PCU Continue IV Amiodarone Cardiology consult RE tachyarrhythmia Trend H&H, transfuse PRBC if hemoglobin less than 8 (hx CVA) DVT prophylaxis. Lovenox subcu Full code Patient's daughter requesting updates from providers. Dr. Tom Lopez, contact #[phone]. History of Present Illness Chief Complaint: Syncope as per records Primary Care Provider: Gabriella Quezada MD History obtained from patient, family, and records. History somewhat limited from patient secondary to language barrier. Medical history significant for CVA, hypertension, BPH, chronic anemia (baseline hemoglobin of 12). Recent confinement May 2019 for acute lacunar ischemic stroke presenting as bilateral leg weakness. The last 2 days, patient noted intermittent shortness of breath symptoms without chest pain. Last night, patient was walking back to his bedroom after using the bathroom when he felt dizzy, lightheaded. Patient passed out and fell backwards on his bed. Teeth were noted to be clenched as per patient's daughter. No actual GTC seizures, tongue biting/incontinence symptoms noted. Patient unresponsive for about 5 minutes. Later complaining of achy headache symptoms. At the ER, initial rhythm was SVT, cardiac rate 140s as per ER provider. SVT terminated by adenosine. NSVT episode subsequently noted at the ER. IV Amiodarone started at the emergency room for wide-complex tachycardia. Medical History as above Surgical History : None Family History : Hypertension Personal/Social history : Non-smoker, no EtOH intake, retired printing pressurization mechanic Allergies Allergy/AdvReac Type Severity Reaction Status Date / Time No Known Allergies Allergy Verified 07/29/19 02:57 Home Medications Home Medications Medication Instructions Recorded Confirmed Type Men's 50 Plus Multivitamin 1 tab PO DAILY 05/31/19 07/29/19 History calcium carbonate [Calcium 600] 600 mg PO DAILY 05/31/19 07/29/19 History aspirin [Aspir-81] 81 mg PO DAILY 07/29/19 07/29/19 History polyethylene glycol 3350 [Miralax] 17 g PO DAILY PRN 07/29/19 07/29/19 History Past Med/Surg History Medical History Stroke No pertinent past medical history Surgical History No pertinent past surgical history Family History Other No pertinent family history Social History Preferred Language: Juany Communication Ability: Effective Escapement Maker Required: Yes Beliefs That Will Affect Care: Cultural Current Living Situation: Family Other Information That Helps Us Care for You: No Feels Safe at Home: Yes Safety Concerns: Feels Safe At This Time Smoking Status: Unknown if ever smoked Hx Alcohol Use: No Hx Substance Use: No Review of Systems Review of Systems: Could not be reliably obtained secondary to language barrier Physical Exam Physical Exam: GENERAL: Comfortable, no respiratory distress SKIN: Pallor , warm HEENT: Partial alopecia, pale palpebral conjunctivae, no ptosis, dry buccal mucosa NECK : Supple, no tenderness CHEST : CTA, no tenderness HEART : RRR, no obvious murmurs ABDOMEN: Soft, nontender RECTAL : Intact sphincter, brown stool (FOBT negative) EXTREMITIES : No LE swelling/tenderness, no other conspicuous deformities noted NEUROLOGIC : Coherent, no facial asymmetry, no other gross focality Results & Data Vital Signs (Past 12 Hours) Vital Signs Temp Pulse Pulse Resp BP BP Pulse Ox 07/29/19 05:08 65 16 115/71 99 07/29/19 04:20 70 16 105/77 99 07/29/19 03:53 71 16 108/70 98 07/29/19 03:35 74 16 104/68 97 07/29/19 03:12 78 16 100/69 98 07/29/19 03:04 89 16 112/75 98 07/29/19 02:52 97 07/29/19 02:45 36.9 C 140 H 16 99/72 L 97 Laboratory Results Laboratory Results WBC 5.35 K/uL (4.8-10.8) 07/29/19 03:00 RBC 3.42 M/uL (4.7-6.1) L 07/29/19 03:00 Hgb 10.8 g/dL (14.0-18.0) L 07/29/19 03:00 Hct 32.4 % (42-52) L 07/29/19 03:00 MCV 94.7 fL (80-100) 07/29/19 03:00 MCH 31.6 pg (25-34) 07/29/19 03:00 MCHC 33.3 g/dL (32-36) 07/29/19 03:00 RDW Std Deviation 45.1 fL (36.4-46.3) 07/29/19 03:00 RDW Coeff of Collin 13.0 % (11.5-14.5) 07/29/19 03:00 Plt Count 183 K/uL (130-400) 07/29/19 03:00 MPV 9.9 fL (7.4-10.4) 07/29/19 03:00 Immature Gran % (Auto) 0.2 % 07/29/19 03:00 Neut % (Auto) 56.0 % 07/29/19 03:00 Lymph % (Auto) 26.7 % 07/29/19 03:00 [place] % (Auto) 13.3 % 07/29/19 03:00 Eos % (Auto) 3.4 % 07/29/19 03:00 Baso % (Auto) 0.4 % 07/29/19 03:00 Immature Gran # (Auto) 0.01 K/uL (0.00-0.02) 07/29/19 03:00 Neut # (Auto) 3.00 K/uL (1.4-6.5) 07/29/19 03:00 Lymph # (Auto) 1.43 K/uL (1.2-3.4) 07/29/19 03:00 [place] # (Auto) 0.71 K/uL (0.11-0.59) H 07/29/19 03:00 Eos # (Auto) 0.18 K/uL (0-0.5) 07/29/19 03:00 Baso # (Auto) 0.02 K/uL (0-0.2) 07/29/19 03:00 Sodium 138 mmol/L (136-145) 07/29/19 03:00 Potassium 4.2 mmol/L (3.5-5.1) 07/29/19 03:00 Chloride 108 mmol/L (98-107) H 07/29/19 03:00 Carbon Dioxide 25 mmol/L (21-32) 07/29/19 03:00 Anion Gap 5.0 (3-11) 07/29/19 03:00 BUN 18 mg/dl (7-18) 07/29/19 03:00 Creatinine 0.80 mg/dl (0.6-1.4) 07/29/19 03:00 Est Cr Clr Drug Dosing 53.3 ml/min 07/29/19 03:00 Est GFR ( Amer) 92.4 07/29/19 03:00 Est GFR (Non-Af Amer) 79.8 07/29/19 03:00 BUN/Creatinine Ratio 23.1 (10-20) H 07/29/19 03:00 Glucose 99 mg/dl (70-99) 07/29/19 03:00 Calcium 7.6 mg/dl (8.5-10.1) L 07/29/19 03:00 Magnesium 1.8 mg/dl (1.8-2.4) 07/29/19 03:00 Total Bilirubin 0.4 mg/dl (0.2-1) 07/29/19 03:00 AST 9 U/L (15-37) L 07/29/19 03:00 ALT 17 U/L (12-78) 07/29/19 03:00 Alkaline Phosphatase 49 U/L (45-117) 07/29/19 03:00 Troponin I 0.040 ng/ml (0-0.045) 07/29/19 03:00 Total Protein 5.6 gm/dl (6.4-8.2) L 07/29/19 03:00 Albumin 2.7 gm/dl (3.4-5.0) L 07/29/19 03:00 Globulin 2.9 gm/dl (2.5-4.0) 07/29/19 03:00 Albumin/Globulin Ratio 0.9 (0.9-2) 07/29/19 03:00 TSH 1.360 uIu/ml (0.300-4.500) 07/29/19 03:[address] head initial read: No acute intracranial findings. Small vessel ischemic change. Global cerebral volume loss. CT chest initial read: No evidence of pulmonary embolism. Main pulmonary artery is mildly dilated suggesting pulmonary hypertension. No evidence of aortic aneurysm or dissection. Mild aortic calcification widened appearance of mediastinum is likely related to tortuosity of the aorta. coronary artery calcifications, cardiomegaly. EKG as per my interpretation: Rate 150, SVT, normal axis, T wave flattening inferior leads
[2019-07-29] MEDS ORDERED: GUAIFENESIN/CODEINE 100MG/10MG 5ML UDC PO STA (05:49)
--- NOTE | 2019-07-29 06:30 | CT Scan Report ---
CT head/brain wo con CT DOSE: 537.48 mGy.cm HISTORY: Mental status change au,syncope TECHNIQUE: Multiaxial CT images of the head were performed without the use of intravenous contrast. A dose lowering technique was utilized adhering to the principles of ALARA. Comparison: 05/31/2019 Findings: The paranasal sinuses and mastoid air cells are clear. The calvarium and skull base are int act. The ventricles and sulci are within normal limits. There is no mass, hematoma, midline shift, or acute infarct. It is noted that this is study is performed post enhancement.. Age-related atrophy an d chronic small vessel change. Impression: No acute intracranial abnormality. Age-related atrophy and chronic small vessel change. The above report was generated using voice recognition software. It may contain grammatical, syntax or spelling errors. Electronically signed by: Agustín Hernández M.D. 07/29/2019 6:29 AM
[2019-07-29] MEDS ORDERED: guaiFENesin SUGAR FREE 200 MG/10 ML UDC PO PRN (06:51)
[2019-07-29] MEDS ORDERED: POLYETHYLENE (MIRALAX) 17 GM PACK PO PRN (06:51)
[2019-07-29] MEDS ORDERED: NITROGLYCERIN SL 0.4 MG/TAB TAB SL PRN (06:51)
[2019-07-29] MEDS ORDERED: ACETAMINOPHEN 325 MG TAB PO PRN (06:51)
[2019-07-29] MEDS ORDERED: OXYCODONE HCL IR 5 MG TAB (IMMEDIATE RELEASE) PO PRN (06:51)
[2019-07-29] MEDS ORDERED: NORMOSOL-R 1,000 ML IV STA (06:51)
[2019-07-29] MEDS ORDERED: PROMETHAZINE HCL 12.5 MG in SODIUM CHLORIDE 0.9% 50 ML IV PRN (06:51)
--- NOTE | 2019-07-29 07:10 | Emergency Department Note ---
Entered by Emiliana Griffin acting as a scribe for Dorcas Wiseman MD History of Present Illness General Chief complaint: Syncope Stated complaint: SYNCOPE Time Seen by Provider: 07/29/19 02:31 Source: family (daughter) History of Present Illness Provider complaint: syncope Onset (ago): minute(s) (prior to arrival) Location: left and right Quality: + other (syncope) Associated symptoms: + chest pain, + weakness and + other (Positive dizziness; Positive visual impairment; Negative shaking) The patient, who is a 89 year old male with a medical history of ischemic stroke, gait instability and leg weakness, presents to the Emergency Room with complaints of syncope that was observed prior to arrival. The patient's daughter states that when the patient came home he complained of dizziness and visual impairment. The patient's daughter recalls that patient falling into his arms and was not able to talk or open his eyes for 5 minutes. The patient's daughter denies that the patient was shaking. The patient's daughter states that the patient is very weak and dizzy. The patient's daughter explains that before the patient complained of chest pain for a few minutes but it has resolved on its own. The patient's daughter states that the patient was at a therapy center yesterday. The patient's daughter confirms that the patient is not on any blood medication. The patient's daughter reports that the patient had a stroke a month ago. Home Medications Home Medications Medication Instructions Recorded Confirmed Type Men's 50 Plus Multivitamin 1 tab PO DAILY 05/31/19 07/29/19 History calcium carbonate [Calcium 600] 600 mg PO DAILY 05/31/19 07/29/19 History aspirin [Aspir-81] 81 mg PO DAILY 07/29/19 07/29/19 History polyethylene glycol 3350 [Miralax] 17 g PO DAILY PRN 07/29/19 07/29/19 History Allergies Allergy/AdvReac Type Severity Reaction Status Date / Time No Known Allergies Allergy Verified 07/29/19 02:57 Past Med/Surg History Medical History Stroke No pertinent past medical history Surgical History No pertinent past surgical history Family History Other No pertinent family history Social History Preferred Language: Juany Communication Ability: Effective Communication Tools: Other Reporting Consultant Required: Yes Beliefs That Will Affect Care: Cultural Current Living Situation: Family Other Information That Helps Us Care for You: No Feels Safe at Home: Yes Safety Concerns: Feels Safe At This Time Smoking Status: Unknown if ever smoked Hx Alcohol Use: No Hx Substance Use: No Review of Systems See HPI for pertinent positives & negatives. and A total of 10 systems reviewed and were otherwise negative Physical Exam Vital Signs Vital Signs - 24 hr 07/29/19 05:08 Pulse Rate [Apical] 65 Respiratory Rate 16 Blood Pressure [Left Arm] 115/71 Blood Pressure Mean [Left Arm] 85 Pulse Oximetry 99 Oxygen Delivery Method Room Air Vital signs reviewed. General: Well-appearing elderly, in no significant distress. HEENT: No scleral icterus, PERRLA, neck supple. Atraumatic. Cardiovascular: Tachycardic rate and regular rhythm, no extra sounds. Pulmonary: Clear to auscultation bilaterally, normal work of breathing. Abdomen: Soft, nontender, nondistended, positive bowel sounds. Musculoskeletal: Atraumatic, no peripheral edema. Neurologic: Patient awake alert and oriented x 3 Skin: Warm, dry, no rash Course 0233: Past medical records reviewed. The patient was evaluated in room B4. A complete history and physical exam was performed. 0235: Adenosine was administered to the patient. 0325: I reviewed the patient's [facility] He will evaluate the patient for further management. Consultations Consultation #1: I reviewed the patient's [facility] He will evaluate the patient for further management. Time: 03:25 Administered Medications Amiodarone HCl (Cordarone) 400 mg PO TIDM IFTIKHAR Stop: 08/28/19 11:59 Last Admin: 07/29/19 17:38 Dose: 400 mg Documented by: [id number] Admin: 07/29/19 12:22 Dose: 400 mg Documented by: [id number] Aspirin (Ecotrin Ectab) 81 mg PO DAILY IFTIKHAR Stop: 08/28/19 08:59 Last Admin: 07/29/19 09:10 Dose: 81 mg Documented by: [id number] Calcium Carbonate (Os-Stan 500) 1,250 mg PO DAILY IFTIKHAR Stop: 08/28/19 08:59 Last Admin: 07/29/19 09:10 Dose: 1,250 mg Documented by: [id number] Enoxaparin Sodium (Lovenox) 30 mg SQ QAM IFTIKHAR Stop: 08/28/19 08:59 Last Admin: 07/29/19 10:29 Dose: 30 mg Documented by: [id number] Discontinued Medications Adenosine (Adenosine) 6 mg IV NOW STA Stop: 07/29/19 02:32 Last Admin: 07/29/19 02:35 Dose: 6 mg Documented by: [id number] Amiodarone HCl (Cordarone Iv Bolus / Drip) 1 ea IV NOW STA; Protocol Stop: 07/29/19 02:46 Last Admin: 07/29/19 06:37 Dose: Not Given Documented by: [id number] Guaifenesin/Codeine Phosphate (Robitussin-Ac Sugar Free) 5 ml PO NOW STA Stop: 07/29/19 05:50 Last Admin: 07/29/19 06:37 Dose: Not Given Documented by: [id number] Sodium Chloride (Nss) 500 mls @ 999 mls/hr IV .Q31M IFTIKHAR Stop: 07/29/19 03:15 Last Infusion: 07/29/19 04:57 Dose: 0 mls/hr Documented by: [id number] Admin: 07/29/19 04:26 Dose: 999 mls/hr Documented by: [id number] Amiodarone HCl/Dextrose (Nexterone / D5w) 150 mg in 100 mls @ 600 mls/hr IV ONE STA Stop: 07/29/19 02:54 Last Infusion: 07/29/19 03:42 Dose: 0 mls/hr Documented by: [id number] Cosigned by: [id number] Admin: 07/29/19 03:05 Dose: 600 mls/hr Documented by: [id number] Cosigned by: [id number] Amiodarone HCl/Dextrose (Nexterone / D5w) 360 mg in 200 mls @ 33.333 mls/hr IV .Q6H IFTIKHAR Stop: 07/29/19 08:44 Last Infusion: 07/29/19 09:08 Dose: 0 mg/min, 0 mls/hr Documented by: [id number] Cosigned by: [id number] Infusion: 07/29/19 07:13 Dose: 1 mg/min, 33.3 mls/hr Documented by: [id number] Cosigned by: [id number] Admin: 07/29/19 03:40 Dose: 1 mg/min, 33.3 mls/hr Documented by: [id number] Cosigned by: [id number] Amiodarone HCl/Dextrose (Nexterone / D5w) 360 mg in 200 mls @ 16.667 mls/hr IV .Q12H IFTIKHAR Stop: 08/28/19 08:44 Last Infusion: 07/29/19 12:23 Dose: 0 mg/min, 0 mls/hr Documented by: [id number] Cosigned by: [id number] Admin: 07/29/19 09:08 Dose: 0.5 mg/min, 16.7 mls/hr Documented by: [id number] Cosigned by: [id number] Magnesium Sulfate/Dextrose (Magnesium Sulfate / D5w) 1 gm in 100 mls @ 100 mls/hr IV ONE ONE Stop: 07/29/19 04:58 Last Infusion: 07/29/19 06:19 Dose: 0 mls/hr Documented by: [id number] Admin: 07/29/19 05:18 Dose: 100 mls/hr Documented by: [id number] Parenteral Electrolytes (Normosol-R) 1,000 mls @ 50 mls/hr IV .Q20H STA Stop: 07/30/19 02:50 Last Infusion: 07/30/19 03:31 Dose: 0 mls/hr Documented by: [id number] Admin: 07/29/19 07:40 Dose: 50 mls/hr Documented by: [id number] Ioversol (Optiray 320 125ml) 125 ml IV ONCE PRN PRN Reason: Interaction Checking Stop: 08/02/19 04:14 Last Admin: 07/29/19 04:15 Dose: 116 ml Documented by: [id number] Medical Decision Making Differential Diagnosis Differential Diagnosis includes: vasovagal event, infection, hypoglycemia, electrolyte abnormalities, cardiac sources, intracerebral event, toxicologic, neurologic, as well as others were entertained. Medical Records Attestation: I reviewed the patient's medical records. Home Medications Current Medication List: was personally reviewed by me Laboratory Data Attestation: I reviewed the patient's lab results. Result diagrams: 07/29/19 07:55 07/29/19 03:00 Lab Results 07/29/19 07/29/19 Range/Units 03:00 03:00 WBC 5.35 (4.8-10.8) K/uL RBC 3.42 L (4.7-6.1) M/uL Hgb 10.8 L (14.0-18.0) g/dL Hct 32.4 L (42-52) % MCV 94.7 (80-100) fL MCH 31.6 (25-34) pg MCHC 33.3 (32-36) g/dL RDW Std Deviation 45.1 (36.4-46.3) fL RDW Coeff of Collin 13.0 (11.5-14.5) % Plt Count 183 (130-400) K/uL MPV 9.9 (7.4-10.4) fL Immature Gran % (Auto) 0.2 % Neut % (Auto) 56.0 % Lymph % (Auto) 26.7 % [place] % (Auto) 13.3 % Eos % (Auto) 3.4 % Baso % (Auto) 0.4 % Immature Gran # (Auto) 0.01 (0.00-0.02) K/uL Neut # (Auto) 3.00 (1.4-6.5) K/uL Lymph # (Auto) 1.43 (1.2-3.4) K/uL [place] # (Auto) 0.71 H (0.11-0.59) K/uL Eos # (Auto) 0.18 (0-0.5) K/uL Baso # (Auto) 0.02 (0-0.2) K/uL Sodium 138 (136-145) mmol/L Potassium 4.2 (3.5-5.1) mmol/L Chloride 108 H (98-107) mmol/L Carbon Dioxide 25 (21-32) mmol/L Anion Gap 5.0 (3-11) BUN 18 (7-18) mg/dl Creatinine 0.80 (0.6-1.4) mg/dl Est Cr Clr Drug Dosing 53.3 ml/min Est GFR ( Amer) 92.4 Est GFR (Non-Af Amer) 79.8 BUN/Creatinine Ratio 23.1 H (10-20) Glucose 99 (70-99) mg/dl Calcium 7.6 L (8.5-10.1) mg/dl Magnesium 1.8 (1.8-2.4) mg/dl Total Bilirubin 0.4 (0.2-1) mg/dl AST 9 L (15-37) U/L ALT 17 (12-78) U/L Alkaline Phosphatase 49 (45-117) U/L Troponin I 0.040 (0-0.045) ng/ml Total Protein 5.6 L (6.4-8.2) gm/dl Albumin 2.7 L (3.4-5.0) gm/dl Globulin 2.9 (2.5-4.0) gm/dl Albumin/Globulin Ratio 0.9 (0.9-2) TSH 1.360 (0.300-4.500) uIu/ml Imaging Data Attestation: I personally reviewed and interpreted this imaging study as follows: My Impression: CHEST XRAY widened mediastinum torturous aorta with broncos deviation no focal on consolidation no failure Radiologist's Impression: Radiology results as stated below per my review and the radiologist's interpretation: CT HEAD: Comparison: CT head 05/31/19 No acute intracranial finding White matter hypodensities, most likely representing small vessel ischemic change, global cerebral volume loss. Visualized permanent sinuses and mastoid air cells are clear. Radiologist: Claus Meraz MD Study ready at 4:59 and initials results transmitted at 05:11 CTA CHEST: No evidence of pulmonary embolism. Main pulmonary artery is mildly dilated, suggesting pulmonary hypertension. No evidence of aortic aneurysm dissection. Evaluation of distal descending aorta is limted by timing of contrast bolus. Mild aortic calcification. Widened appearance of mediastinum is likely related to tortuosity of the aorta. Subsegmental atelectasis. No effusion or pneumothorax. Heart is mildly enlarged. Coronary artery calcifications. 1.8 cm left renal cyst. Nonspecific perinephric stranding bilaterally. Degenerative changes of thoracic spine with mildly exaggerated thoracic kyphosis. Radiologist: Claus Tran MD Study ready at 04:7 and initial results transmitted at 05:09 ECG Data Attestation: I personally reviewed and interpreted this ECG as follows: Indication: syncope Rate (beats per minute): 147 Rhythm: SVT Findings: + other (Previous anterior infarct; QTC = 441) and + nonspecific-ST abn; no ectopy Additional Comments: 2nd EKG Reading: Normal sinus rhythm at 87 bpm. 87 No ectopy No acute ischemia QTC IS 401 SVT is resolved when compared to previous Blood Pressure Blood Pressure Findings: Normal blood pressure MDM Narrative This pt was evaluated and appeared to be in no distress. IV access was obtained and lab work was drawn. PT was placed on the pvc monitor. Patient was found to be in SVT, given 6 mg of IV adenosine with conversion to a sinus rhythm. Patient remained on telemetry and was found to have approximately 12 beat run of a wide complex tachycardia thought to be VT. IV amiodarone was initiated. Laboratory work is fairly reassuring with a negative troponin of 0.04, potassium 4.2 and magnesium of 1.8. Patient is found to be mildly anemic with a hemoglobin of 11.4. Chest x-ray was performed and to my interpretation reveals a widened mediastinum but no focal lung consolidation. CT scan of the head was performed and is negative for acute intracranial abnormality. A chest CT was performed in follow-up and is read as above with no evidence of PE or aortic dissection. Patient had no further episodes of arrhythmia during stay in the ER. Patient was discussed with the hospitalist, Dr. Scherer who evaluated the patient for further management. Patient and family were aware of the plan and agreed. Impression & Plan SVT (supraventricular tachycardia), Ventricular tachycardia Critical Care Time Critical Care Time: Yes Total Critical Care Time: 35 I have personally spent 35 minutes of critical care time in the direct management of this patient. This includes bedside care, interpretation of diagnostic studies, and testing, discussion with consultants, patient, and family members, and other required patient management activities. This 35 minutes is in excess of all separately billable procedures. Discharge Plan Visit Data *Final* Discharge Date/Time: 07/29/19 06:27 Chief Complaint: Syncope Stated Complaint: SYNCOPE ED Provider: Dorcas Wiseman Discharge Problem: SVT (supraventricular tachycardia), Ventricular tachycardia Patient Disposition: Admitted As Inpatient Discharge Instructions Interventions: ED Discharge Assessment Last Done: 07/29/19 06:27 The scribe's documentation has been prepared under my direction and personally reviewed by me in its entirety. I confirm that the note above accurately reflects all work, treatment, procedures, and medical decision making performed by me.
--- NOTE | 2019-07-29 07:22 | XRay Report ---
XR chest 1V portable HISTORY: syncope COMPARISON: None. FINDINGS: The lungs are clear. The heart is borderline enlarged. Mediastinal widening is noted. Tortu ous thoracic aorta. No pleural effusions. No pneumothorax. IMPRESSION: Mediastinal widening of uncertain significance. Chest CT follow-up recommended. Electronically signed by: Juve Shabazz M.D. 07/29/2019 7:21 AM
--- NOTE | 2019-07-29 07:44 | CT Scan Report ---
CHEST CTA for PULMONARY ARTERIES CT DOSE: 223.59 mGy.cm HISTORY: Syncope. PE, widened mediastinum, syncope TECHNIQUE: Multiaxial CT images of the chest were performed following the intravenous administration of contrast to evaluate the pulmonary arteries. Maximal intensity projection images were also obtaine d. A dose lowering technique was utilized adhering to the principles of ALARA. COMPARISON STUDY: None. FINDINGS: The visualized liver, spleen, and adrenal glands are unremarkable. A 1.6 cm hypodense lesio n within the upper pole the left kidney. This favors a cyst. No pleural or pericardial effusions. Nor mal esophagus. The heart is mildly enlarged. No mediastinal or hilar lymphadenopathy. Tortuous thorac ic aorta with no evidence for dissection. This likely accounts for the apparent mediastinal widening. No filling defects within the pulmonary arteries to suggest pulmonary embolus. The central airways a re patent. No pneumothorax. Groundglass densities at the lung bases favor mild dependent change. Smal l linear density within the left lung apex favor scarring or subsegmental atelectasis. Otherwise, no focal lung consolidations to suggest pneumonia. No acute fractures identified. The main pulmonary art oswaldo is mildly distended at 3.4 cm consistent with pulmonary hypertension. Mild bilateral perinephric edema. This may be chronic. IMPRESSION: 1. No evidence for pulmonary embolus. 2. Mild pulmonary arterial hypertension. 3. Mild cardiomegaly. 4. Additional findings as described above. Electronically signed by: Juve Shabazz M.D. 07/29/2019 7:42 AM
[2019-07-29 08:23] LABS: Hematocrit (blood only) 33.6 % (42-52); Hemoglobin 11.4 g/dL (14.0-18.0)
[2019-07-29] MEDS ORDERED: [UNRECOGNIZED DRUG - OTHER] PO SCH (09:00)
[2019-07-29] MEDS: CALCIUM CARBONATE 1250MG TAB PO SCH (09:10)
[2019-07-29] MEDS: ASPIRIN 81 MG ECTAB PO SCH (09:10)
[2019-07-29] MEDS: ENOXAPARIN INJ 30 MG/0.3 ML SYR SQ SCH (10:29)
--- NOTE | 2019-07-29 11:54 | Cardiology Consultation ---
Date of Consultation July 29, 2019 Assessment & Plan (1) Syncope: (2) Gait instability: (3) Complaints of leg weakness: (4) Ischemic stroke: (5) SVT (supraventricular tachycardia): In this situation, the question is what came first the chicken or the egg. The patient has a recent history of stroke. According the records the family did witness some jerking motion whenever the patient had the syncopal event. He may have had a seizure and the presentation with the SVT may have been the result of a catecholamine surge following the seizure. I think at this point we can continue the amiodarone and I will switch him to oral. This should be a good drug to control atrial arrhythmias. I reviewed the telemetry strips and I do not believe the wide-complex event was necessarily V. tach. I think it is more likely that it was an atrial arrhythmia with aberrancy. The patient had an echocardiogram performed several months ago at the time of his CVA. Given his age, it actually was a very good echocardiogram with normal LV function and no significant valvular pathology. I would recommend that we consult neurology for their katlyn regarding the potential for a seizure disorder. As mentioned above I would continue the amiodarone. Regarding long-term anticoagulation, I do not believe this patient would be a good candidate given his age and gait disturbance. I would continue him on aspirin only. History of Present Illness Attending Physician: Gabe Veloz MD History of Present Illness This is an 89-year-old male patient who was in a very good state of health until this past summer. He was actually on no medications when he presented with weakness and gait disturbance. He was found to have had a new lacunar frontal lobe infarct. The patient was started on aspirin by neurology. He spent time at the rehab hospital and only recently returned home. He is living with his daughter and his elderly . According to his daughter he still has difficulty ambulating. Last night he got up to go to the bathroom and had a witnessed syncopal episode. When he arrived to the emergency department he was in an SVT which according to records on at least 2 occasions broke with adenosine but eventually an amiodarone infusion was started and he had no additional arrhythmias. There is also a suggestion of a wide-complex tachycardia, when I reviewed the telemetry strips the wide-complex Tachycardia could be atrial in origin with a Cristina C. The rate of the SVT also suggest that this could be atrial flutter with 2-1 conduction. In any case, he has been stable since amiodarone was started intravenously. He has no prior history of heart disease. No previous history of strokes, diabetes or kidney disease. Allergies Allergy/AdvReac Type Severity Reaction Status Date / Time No Known Allergies Allergy Verified 07/29/19 02:57 Home Medications Home Medications Medication Instructions Recorded Confirmed Type Men's 50 Plus Multivitamin 1 tab PO DAILY 05/31/19 07/29/19 History calcium carbonate [Calcium 600] 600 mg PO DAILY 05/31/19 07/29/19 History aspirin [Aspir-81] 81 mg PO DAILY 07/29/19 07/29/19 History polyethylene glycol 3350 [Miralax] 17 g PO DAILY PRN 07/29/19 07/29/19 History Patient History Medical History Stroke No pertinent past medical history Surgical History No pertinent past surgical history Family History Other No pertinent family history Social History Preferred Language: Juany Communication Ability: Effective Communication Tools: Other Machine Stemmer Required: Yes Beliefs That Will Affect Care: Cultural Current Living Situation: Family Other Information That Helps Us Care for You: No Feels Safe at Home: Yes Safety Concerns: Feels Safe At This Time Smoking Status: Unknown if ever smoked Hx Alcohol Use: No Hx Substance Use: No Review of Systems Review of Systems: All systems reviewed & are unremarkable except as noted in HPI & below Nothing additional Physical Exam Physical Exam: General: no acute distress and stated age Head: normocephalic, no masses, lesions, tenderness or abnormalities Eyes: conjunctiva are pink and non-injected, sclera clear Neck: supple, no adenopathy, no bruits, normal jugular venous pulse, no hepatojugular reflux Chest: normal shape and normal respiratory effort Lungs: clear to auscultation and percussion Cardiac Exam: - regular rate & rhythm, no murmurs gallops or rubs - normal S1, normal S2 Pulses: 2(+) throughout Abdomen: abdomen soft, non-tender, no abnormal masses and no hepatosplenomegaly Musculoskeletal: no gait disturbance, no joint inflammation, no deforming arthritis Extremities: no edema and no cyanosis Neuro: grossly normal exam Results & Data Vital Signs (Past 12 Hours) Vital Signs Temp Pulse Pulse Resp BP BP Pulse Ox 07/29/19 07:56 36.5 C 64 18 113/70 97 07/29/19 07:55 65 07/29/19 06:39 36.7 C 66 123/75 94 07/29/19 05:08 65 16 115/71 99 07/29/19 04:20 70 16 105/77 99 07/29/19 03:53 71 16 108/70 98 07/29/19 03:35 74 16 104/68 97 07/29/19 03:12 78 16 100/69 98 07/29/19 03:04 89 16 112/75 98 07/29/19 02:52 97 07/29/19 02:45 36.9 C 140 H 16 99/72 L 97 Laboratory Results Laboratory Results - last 24 hr 07/29/19 07/29/19 07/29/19 03:00 03:00 07:55 WBC 5.35 RBC 3.42 L Hgb 10.8 L 11.4 L Hct 32.4 L 33.6 L MCV 94.7 MCH 31.6 MCHC 33.3 RDW Std Deviation 45.1 RDW Coeff of Collin 13.0 Plt Count 183 MPV 9.9 Immature Gran % (Auto) 0.2 Neut % (Auto) 56.0 Lymph % (Auto) 26.7 [place] % (Auto) 13.3 Eos % (Auto) 3.4 Baso % (Auto) 0.4 Immature Gran # (Auto) 0.01 Neut # (Auto) 3.00 Lymph # (Auto) 1.43 [place] # (Auto) 0.71 H Eos # (Auto) 0.18 Baso # (Auto) 0.02 Sodium 138 Potassium 4.2 Chloride 108 H Carbon Dioxide 25 Anion Gap 5.0 BUN 18 Creatinine 0.80 Est Cr Clr Drug Dosing 53.3 Est GFR ( Amer) 92.4 Est GFR (Non-Af Amer) 79.8 BUN/Creatinine Ratio 23.1 H Glucose 99 Calcium 7.6 L Magnesium 1.8 Total Bilirubin 0.4 AST 9 L ALT 17 Alkaline Phosphatase 49 Troponin I 0.040 Total Protein 5.6 L Albumin 2.7 L Globulin 2.9 Albumin/Globulin Ratio 0.9 TSH 1.360 Blood Type Antibody Screen 07/29/19 07:55 WBC RBC Hgb Hct MCV MCH MCHC RDW Std Deviation RDW Coeff of Collin Plt Count MPV Immature Gran % (Auto) Neut % (Auto) Lymph % (Auto) [place] % (Auto) Eos % (Auto) Baso % (Auto) Immature Gran # (Auto) Neut # (Auto) Lymph # (Auto) [place] # (Auto) Eos # (Auto) Baso # (Auto) Sodium Potassium Chloride Carbon Dioxide Anion Gap BUN Creatinine Est Cr Clr Drug Dosing Est GFR ( Amer) Est GFR (Non-Af Amer) BUN/Creatinine Ratio Glucose Calcium Magnesium Total Bilirubin AST ALT Alkaline Phosphatase Troponin I Total Protein Albumin Globulin Albumin/Globulin Ratio TSH Blood Type A Positive Antibody Screen NEGATIVE Medications Administered Current Inpatient Medications Acetaminophen (Tylenol) 650 mg PO Q4H PRN PRN Reason: Pain or Fever Stop: 08/28/19 06:50 Amiodarone HCl (Cordarone) 400 mg PO TIDM [facility] Stop: 08/28/19 11:59 Aspirin (Ecotrin Ectab) 81 mg PO DAILY IFTIKHAR Stop: 08/28/19 08:59 Last Admin: 07/29/19 09:10 Dose: 81 mg Documented by: Calcium Carbonate (Os-Stan 500) 1,250 mg PO DAILY IFTIKHAR Stop: 08/28/19 08:59 Last Admin: 07/29/19 09:10 Dose: 1,250 mg Documented by: Enoxaparin Sodium (Lovenox) 30 mg SQ QAM IFTIKHAR Stop: 08/28/19 08:59 Last Admin: 07/29/19 10:29 Dose: 30 mg Documented by: Guaifenesin (Robitussin Sugar Free) 200 mg PO Q6H PRN PRN Reason: Cough Stop: 08/28/19 06:50 Parenteral Electrolytes (Normosol-R) 1,000 mls @ 50 mls/hr IV .Q20H STA Stop: 07/30/19 02:50 Last Admin: 07/29/19 07:40 Dose: 50 mls/hr Documented by: Promethazine HCl 12.5 mg/ (Sodium Chloride) 50.5 mls @ 202 mls/hr IV Q6H PRN PRN Reason: Nausea And Vomiting Stop: 08/28/19 06:50 Nitroglycerin (Nitrostat) 0.4 mg SL UD PRN PRN Reason: Chest Pain Stop: 08/28/19 06:50 Oxycodone HCl (Roxicodone Immediate Rel) 5 mg PO Q4H PRN PRN Reason: Pain Stop: 08/12/19 06:50 Polyethylene Glycol (Miralax Powder Packet) 17 gm PO DAILY PRN PRN Reason: Constipation Stop: 08/28/19 06:50
[2019-07-29] MEDS: AMIODARONE 200 MG TAB PO SCH ×2 (12:22→17:38)
--- NOTE | 2019-07-29 14:11 | Neurology Consultation ---
Date of Consultation July 29, 2019 Assessment & Plan (1) Syncope: 1. EEG - ordered was not convincing for seizure but will evaluate -likely tomorrow will be done 2. CT head with no acute findings 3. cardiology - amiodarone started and plan to continue aspirin only at this time -no anticoag candidate 4. fall precautions 5. PT/OT for discharge needs 6. no antiseizure medications at this time can further evaluate as outpatient with 72 hour if needed. 7. MRI brain- wo r/o stroke if any further stroke would recommend CTA head and neck 8. continue aspirin 81 mg 9. cardiology for further recommendations regarding heart r/r Supervising Physician Co-Signing Physician Notes I have seen and discussed above patient with Dr Chayito Ortiz, neurology. Pt with recent R deep white matter infarct. By family report that presented with bl LE weakness. Lat evening the pt had a large BM and while going back to bed co of dizziness and vis dimming. Pt had been experiencing CP but no palpitations.Pt was lowered to floor and had a greater than 5 min LOC with pallor. Not incont or injury or focal neurologic signs upon awakening (such as vertigo, diplopia, dysarthria.No sz activity. Mild confusion. When brought to ER he was mildly hypotensive and tachycardic. Pt exam with help of daughter (pt is [place]) No field cut, facial asymm. Mild L drift, LE symm. Imp likely syncope,unlikely sz (no sz activity noted, pt co visual dimming and was pale. P. EEG. Daughter concerned this could be another stroke as pt sx of prior stroke were nonlateralizing. Doubt a post circ TIA due to no brainstem sx. Have ordered MRI brain. If infarct could consider CTA head/neck or MRA head and neck. DESIREE Ortiz History of Present Illness Reason for Consultation: possible seizure, syncope Requesting Physician: Gabe Veloz MD Attending Physician: Gabe Veloz MD History of Present Illness Andres is a 89 year old [place] male with a PMH - ischemic stroke, gait instability and leg weakness, presents to [facility] after a syncope that was observed. His daughter states the patient had gotten up to use the bathroom (bowel movement) and complained of dizziness and visual impairment. He fell into his 's arms and was not able to talk or open his eyes for 5 minutes. He could identify his and daughter in the room afterwards. There was no shaking or biting tongue. He was very weak and dizzy. Several night prior he was complaining of CP and feeling like he couldn't sleep. Since his stroke he has been ambulating with a walker and going to physical therapy and was there earlier the day of the syncope. denies current CP, SOB, abdominal pain, increased weakness, numbness tingling, swallowing issues, N, V, incontinence. Allergies Allergy/AdvReac Type Severity Reaction Status Date / Time No Known Allergies Allergy Verified 07/29/19 02:57 Home Medications Home Medications Medication Instructions Recorded Confirmed Type Men's 50 Plus Multivitamin 1 tab PO DAILY 05/31/19 07/29/19 History calcium carbonate [Calcium 600] 600 mg PO DAILY 05/31/19 07/29/19 History aspirin [Aspir-81] 81 mg PO DAILY 07/29/19 07/29/19 History polyethylene glycol 3350 [Miralax] 17 g PO DAILY PRN 07/29/19 07/29/19 History Patient History Medical History Stroke No pertinent past medical history Surgical History No pertinent past surgical history Family History Other No pertinent family history Social History Preferred Language: Juany Communication Ability: Effective Supervisor [employer] Required: Yes Beliefs That Will Affect Care: Cultural Current Living Situation: Family Other Information That Helps Us Care for You: No Feels Safe at Home: Yes Safety Concerns: Feels Safe At This Time Smoking Status: Unknown if ever smoked Hx Alcohol Use: No Hx Substance Use: No Physical Exam Physical Exam: Physical Exam: Constitutional: appearance nourished, healthy and normal Ears, Nose, Mouth and Throat: mucous membranes moist, no injection and skin normal, eyes normal Cardiovascular: regular rate Respiratory: clear to auscultation (CTA) and no rales, rhonchi or wheeze Musculoskeletal: no peripheral edema and good distal pulses Skin: no stigmata of neurocutaneous disease noted and normal and intact Eyes: extraocular muscles intact (EOMI) and pupils equal, round and reactive to light (PERRL) NEUROLOGIC EXAMINATION: Mental status: Alert and interactive Oriented to person Speech fluent with no evidence of aphasia Cranial Nerves smile eye brow raise symmetric Reflexes: Deep tendon reflexes were symmetrical and graded 2/5. Sensory: intact to light and cool touch Coordination: finger to nose no bi pass Gait/Stance: Posture normal. lying in bed Strength: hand tour director bilaterally 5/5 hip flex right 4+/5 , left 4+/5 plantar flex ext 5/5 Results & Data Vital Signs (Past 12 Hours) Vital Signs Temp Pulse Pulse Resp BP BP Pulse Ox 07/29/19 12:03 36.6 C 57 L 18 115/70 96 07/29/19 07:56 36.5 C 64 18 113/70 97 07/29/19 07:55 65 07/29/19 06:39 36.7 C 66 123/75 94 07/29/19 05:08 65 16 115/71 99 07/29/19 04:20 70 16 105/77 99 07/29/19 03:53 71 16 108/70 98 07/29/19 03:35 74 16 104/68 97 07/29/19 03:12 78 16 100/69 98 07/29/19 03:04 89 16 112/75 98 07/29/19 02:52 97 07/29/19 02:45 36.9 C 140 H 16 99/72 L 97 Laboratory Results Abnormal lab results 07/29/19 07/29/19 07/29/19 Range/Units 03:00 03:00 07:55 RBC 3.42 L (4.7-6.1) M/uL Hgb 10.8 L 11.4 L (14.0-18.0) g/dL Hct 32.4 L 33.6 L (42-52) % Porter # (Auto) 0.71 H (0.11-0.59) K/uL Chloride 108 H (98-107) mmol/L BUN/Creatinine Ratio 23.1 H (10-20) Calcium 7.6 L (8.5-10.1) mg/dl AST 9 L (15-37) U/L Total Protein 5.6 L (6.4-8.2) gm/dl Albumin 2.7 L (3.4-5.0) gm/dl Diagnostic Findings CXR-Mediastinal widening of uncertain significance. Chest CT follow-up recommended. CTA chest-No evidence for pulmonary embolus. Mild pulmonary arterial hypertension. Mild cardiomegaly. CT head-No acute intracranial abnormality. Age-related atrophy and chronic small vessel change.
--- NOTE | 2019-07-29 16:58 | Hospitalist Progress Note ---
Date of Service July 29, 2019 Assessment & Plan (1) Syncope: Syncope Likely secondary to SVT CT Head:No acute intracranial abnormality. Age-related atrophy and chronic small vessel change. MRI brain, EEG pending Monitor on telemetry Currently in sinus Amiodarone ggt transitioned to PO amiodarone 400 mg TID Appreciate cardiology, neurology input H/O CVA Continue Aspirin Currently not on statin Hypertension BP stable Continue current meds monitor BPH Stable Chronic anemia stool Hemoccult: Negative No acute bleeding issues monitor Hyperglycemia Prediabetes Hb A1C:5.7 in May 2019 DVT Px: Lovenox SQ Code Status Full code Disposition PT/OT prior to discharge Subjective Patient is seen and examined at bedside Complains of mild frontal headache this morning Denies any chest pain, shortness of breath, dizziness, nausea, abdominal pain Currently in sinus rhythm this morning Family at bedside Offers no other complaints Review of Systems Review of Systems: All systems reviewed & are unremarkable except as noted in HPI & below Physical Exam Physical Exam: Physical Exam: Vitals signs as noted above General Appearance:Moderately built and nourished, no apparent distress Head: normocephalic, Atraumatic Eyes: normal inspection, EOMI Neck: supple, Trachea midline Respiratory/Chest: Normal breath sounds, CTA Cardiovascular: S1, S2, No murmur Abdomen/GI:Soft, Non tender, Bowel sounds present Extremities/Musculoskelatal:normal inspection, no edema Neurologic/Psych:AAOX3, grossly no focal neurological deficits Skin: normal color, warm Results & Data Vital Signs (Past 12 Hours) Vital Signs Temp Pulse Pulse Resp BP Pulse Ox 07/29/19 15:44 36.5 C 65 19 120/68 96 07/29/19 15:13 54 L 07/29/19 12:03 36.6 C 57 L 18 115/70 96 07/29/19 07:56 36.5 C 64 18 113/70 97 07/29/19 07:55 65 07/29/19 06:39 36.7 C 66 123/75 94 07/29/19 05:08 65 16 115/71 99 Laboratory Results Short CBC 07/29/19 07/29/19 Range/Units 03:00 07:55 WBC 5.35 (4.8-10.8) K/uL Hgb 10.8 L 11.4 L (14.0-18.0) g/dL Hct 32.4 L 33.6 L (42-52) % Plt Count 183 (130-400) K/uL BMP 07/29/19 03:00 Sodium 138 Potassium 4.2 Chloride 108 H Carbon Dioxide 25 BUN 18 Creatinine 0.80 Glucose 99 Calcium 7.6 L Cardiac Enzymes 07/29/19 Range/Units 03:00 Troponin I 0.040 (0-0.045) ng/ml Liver Function 07/29/19 Range/Units 03:00 Total Bilirubin 0.4 (0.2-1) mg/dl AST 9 L (15-37) U/L ALT 17 (12-78) U/L Alkaline Phosphatase 49 (45-117) U/L Albumin 2.7 L (3.4-5.0) gm/dl
--- NOTE | 2019-07-29 20:22 | Magnetic Resonance Report ---
MRI OF THE BRAIN WITHOUT CONTRAST CLINICAL HISTORY: Blurred vision. Syncope. Evaluate for new stroke. COMPARISON STUDY: MRI of the brain May 31, 2019. Head CT July 29, 2019. TECHNIQUE: Utilizing a 1.5 Anali magnet and dedicated coil, multiplanar, multiecho imaging of the bra in was performed without IV contrast. FINDINGS: There are no foci of restricted diffusion. No acute intracranial hemorrhage, midline shift or mass effect is present. Ventricular dilatation is due to atrophy. This is unchanged. The basilar c isterns are patent. There are no extra axial collections. No intracranial masses identified on this u nenhanced exam. Marked atrophy is noted. Several old infarcts are noted, including lacunar infarcts w ithin the right cerebellar hemisphere. White matter T2 hyperintense foci are unchanged and suggest m oderate small vessel disease. IMPRESSION: 1. No acute intracranial findings. 2. Marked atrophy. Multiple old infarcts. Electronically signed by: Oracio Bales M.D. 07/29/2019 8:20 PM
[2019-07-30 07:00] LABS: Basophils # (auto) 0.03 K/uL (0-0.2); Basophils % (auto) 0.5 %; Eosinophils # (auto) 0.25 K/uL (0-0.5); Hematocrit (blood only) 34.6 % (42-52); Hemoglobin 11.5 g/dL (14.0-18.0); Immature Granulocytes # (auto) 0.01 K/uL (0.00-0.02); Immature Granulocytes % (auto) 0.2 %; Lymphocytes # (auto) 2.38 K/uL (1.2-3.4); Lymphocytes % (auto) 37.7 %; Mean Corpuscular Hemoglobin 31.7 pg (25-34); Mean Corpuscular Hgb Conc 33.2 g/dL (32-36); Mean Corpuscular Volume 95.3 fL (80-100); Mean Platelet Volume 10.6 fL (7.4-10.4); Monocytes # (auto) 0.76 K/uL (0.11-0.59); Neutrophils # (auto) 2.88 K/uL (1.4-6.5); Neutrophils % (auto) 45.6 %; Platelet Count 210 K/uL (130-400); RDW Coefficient of Variation 13.3 % (11.5-14.5); RDW Standard Deviation 46.9 fL (36.4-46.3); Red Blood Count 3.63 M/uL (4.7-6.1); White Blood Count 6.31 K/uL (4.8-10.8)
[2019-07-30 07:57] LABS: BUN Creatinine Ratio 14.1 (10-20); Calcium 8.3 mg/dl (8.5-10.1); Creatinine Clr Calc Pharmacy 50.5 ml/min; Est GFR (Non-African American) 79.4; Potassium 4.3 mmol/L (3.5-5.1)
[2019-07-30 08:16] LABS: RBC Morphology Unremarkable
[2019-07-30] MEDS: ENOXAPARIN INJ 30 MG/0.3 ML SYR SQ SCH (09:16)
[2019-07-30] MEDS: AMIODARONE 200 MG TAB PO SCH ×3 (09:16→16:42)
[2019-07-30] MEDS: CALCIUM CARBONATE 1250MG TAB PO SCH (09:16)
[2019-07-30] MEDS: ASPIRIN 81 MG ECTAB PO SCH (09:16)
--- NOTE | 2019-07-30 10:30 | Electroencephalogram ---
EEG Procedure Note Date of Service July 30, 2019 Start / End Times Start Time: 836 End Time: 0857 Referring Physician Chayito Ortiz MD History Syncope versus seizure Home Medication List Home Medications Medication Instructions Recorded Confirmed Type Men's 50 Plus Multivitamin 1 tab PO DAILY 05/31/19 07/29/19 History calcium carbonate [Calcium 600] 600 mg PO DAILY 05/31/19 07/29/19 History aspirin [Aspir-81] 81 mg PO DAILY 07/29/19 07/29/19 History polyethylene glycol 3350 [Miralax] 17 g PO DAILY PRN 07/29/19 07/29/19 History Inpatient Medication List Amiodarone HCl (Cordarone) 400 mg PO TIDM [facility] Stop: 08/28/19 11:59 Last Admin: 07/30/19 09:16 Dose: 400 mg Documented by: [id number] Admin: 07/29/19 17:38 Dose: 400 mg Documented by: [id number] Admin: 07/29/19 12:22 Dose: 400 mg Documented by: [id number] Aspirin (Ecotrin Ectab) 81 mg PO DAILY [facility] Stop: 08/28/19 08:59 Last Admin: 07/30/19 09:16 Dose: 81 mg Documented by: [id number] Admin: 07/29/19 09:10 Dose: 81 mg Documented by: [id number] Calcium Carbonate (Os-Stan 500) 1,250 mg PO DAILY [facility] Stop: 08/28/19 08:59 Last Admin: 07/30/19 09:16 Dose: 1,250 mg Documented by: [id number] Admin: 07/29/19 09:10 Dose: 1,250 mg Documented by: [id number] Enoxaparin Sodium (Lovenox) 30 mg SQ QAM IFTIKHAR Stop: 08/28/19 08:59 Last Admin: 07/30/19 09:16 Dose: 30 mg Documented by: [id number] Admin: 07/29/19 10:29 Dose: 30 mg Documented by: [id number] Discontinued Medications Adenosine (Adenosine) 6 mg IV NOW STA Stop: 07/29/19 02:32 Last Admin: 07/29/19 02:35 Dose: 6 mg Documented by: [id number] Amiodarone HCl (Cordarone Iv Bolus / Drip) 1 ea IV NOW STA; Protocol Stop: 07/29/19 02:46 Last Admin: 07/29/19 06:37 Dose: Not Given Documented by: [id number] Guaifenesin/Codeine Phosphate (Robitussin-Ac Sugar Free) 5 ml PO NOW STA Stop: 07/29/19 05:50 Last Admin: 07/29/19 06:37 Dose: Not Given Documented by: [id number] Sodium Chloride (Nss) 500 mls @ 999 mls/hr IV .Q31M IFTIKHAR Stop: 07/29/19 03:15 Last Infusion: 07/29/19 04:57 Dose: 0 mls/hr Documented by: [id number] Admin: 07/29/19 04:26 Dose: 999 mls/hr Documented by: [id number] Amiodarone HCl/Dextrose (Nexterone / D5w) 150 mg in 100 mls @ 600 mls/hr IV ONE STA Stop: 07/29/19 02:54 Last Infusion: 07/29/19 03:42 Dose: 0 mls/hr Documented by: [id number] Cosigned by: [id number] Admin: 07/29/19 03:05 Dose: 600 mls/hr Documented by: [id number] Cosigned by: [id number] Amiodarone HCl/Dextrose (Nexterone / D5w) 360 mg in 200 mls @ 33.333 mls/hr IV .Q6H IFTIKHAR Stop: 07/29/19 08:44 Last Infusion: 07/29/19 09:08 Dose: 0 mg/min, 0 mls/hr Documented by: [id number] Cosigned by: [id number] Infusion: 07/29/19 07:13 Dose: 1 mg/min, 33.3 mls/hr Documented by: [id number] Cosigned by: [id number] Admin: 07/29/19 03:40 Dose: 1 mg/min, 33.3 mls/hr Documented by: [id number] Cosigned by: [id number] Amiodarone HCl/Dextrose (Nexterone / D5w) 360 mg in 200 mls @ 16.667 mls/hr IV .Q12H IFTIKHAR Stop: 08/28/19 08:44 Last Infusion: 07/29/19 12:23 Dose: 0 mg/min, 0 mls/hr Documented by: [id number] Cosigned by: [id number] Admin: 07/29/19 09:08 Dose: 0.5 mg/min, 16.7 mls/hr Documented by: [id number] Cosigned by: [id number] Magnesium Sulfate/Dextrose (Magnesium Sulfate / D5w) 1 gm in 100 mls @ 100 mls/hr IV ONE ONE Stop: 07/29/19 04:58 Last Infusion: 07/29/19 06:19 Dose: 0 mls/hr Documented by: [id number] Admin: 07/29/19 05:18 Dose: 100 mls/hr Documented by: [id number] Parenteral Electrolytes (Normosol-R) 1,000 mls @ 50 mls/hr IV .Q20H STA Stop: 07/30/19 02:50 Last Infusion: 07/30/19 03:31 Dose: 0 mls/hr Documented by: [id number] Admin: 07/29/19 07:40 Dose: 50 mls/hr Documented by: [id number] Ioversol (Optiray 320 125ml) 125 ml IV ONCE PRN PRN Reason: Interaction Checking Stop: 08/02/19 04:14 Last Admin: 07/29/19 04:15 Dose: 116 ml Documented by: [id number] Description This is a 21 electrode EEG with a single channel dedicated to limited EKG. The electrodes were placed in accordance with the International 10-20 system.This EEG was done as a bedside recording with simultaneous video analysis of patient movement and behavior. The patient is of good technical quality with few or no muscle movement. Photic stimulation only stimulus parameter utilized. Drowsiness and light sleep are not recorded. Under these conditions there is evidence for a well-developed background rhythm in the alpha range of up to 10 Hz maximum frequency and 20 V maximum amplitude. This is maximum posterior head regions bilaterally symmetrical. Polymorphic mid frequency central region maximal and symmetrical theta activity is seen. Beta activity seen bifrontally. Photic stimulation provokes a normal driving response without a photo myogenic a photoparoxysmal component At no time during the EEG is for potentially epileptogenic discharges Interpretation This is a normal EEG during wakefulness without evidence for focal or generalized encephalopathy and without evidence for potentially epileptogenic activity Clinical Correlation This EEG fails to reveal evidence for a generalized or focal encephalopathy or potentially epileptogenic activity but does not totally exclude the potential diagnosis of seizure disorder and clinica correlation is required Miguel Davis MD l
--- NOTE | 2019-07-30 11:08 | Cardiology Progress Note ---
Date of Service July 30, 2019 Assessment & Plan (1) Syncope: (2) Gait instability: (3) Complaints of leg weakness: (4) Ischemic stroke: (5) SVT (supraventricular tachycardia): Neurology consult appreciated. MRI of the brain shows small vessel disease and multiple infarcts. EEG was negative for seizure activity. At this point I would maintain the patient on aspirin only. We will continue to load his amiodarone. Subjective No new cardiac problems. The patient is maintaining sinus rhythm. Neurology consult is appreciated. Review of Systems Review of Systems: Unobtainable due to cognitive status Physical Exam Physical Exam: General: no acute distress and stated age Head: normocephalic, no masses, lesions, tenderness or abnormalities Eyes: conjunctiva are pink and non-injected, sclera clear Neck: supple, no adenopathy, no bruits, normal jugular venous pulse, no hepatojugular reflux Chest: normal shape and normal respiratory effort Lungs: clear to auscultation and percussion Cardiac Exam: - regular rate & rhythm, no murmurs gallops or rubs - normal S1, normal S2 Pulses: 2(+) throughout Abdomen: abdomen soft, non-tender, no abnormal masses and no hepatosplenomegaly Musculoskeletal: no gait disturbance, no joint inflammation, no deforming arth ritis Extremities: no edema and no cyanosis Neuro: grossly normal exam Results & Data Vital Signs (Past 12 Hours) Vital Signs Temp Pulse Resp BP Pulse Ox Pulse Ox 07/30/19 10:52 100 07/30/19 07:05 36.7 C 53 L 18 147/76 H 95 07/30/19 04:38 36.7 C 61 18 150/81 H 99 07/30/19 00:43 36.7 C 65 18 134/80 98 Laboratory Results Laboratory Results - last 24 hr 07/30/19 07/30/19 07/30/19 06:18 06:18 07:39 WBC 6.31 RBC 3.63 L Hgb 11.5 L Hct 34.6 L MCV 95.3 MCH 31.7 MCHC 33.2 RDW Std Deviation 46.9 H RDW Coeff of Collin 13.3 Plt Count 210 MPV 10.6 H Immature Gran % (Auto) 0.2 Neut % (Auto) 45.6 Lymph % (Auto) 37.7 [place] % (Auto) 12.0 Eos % (Auto) 4.0 Baso % (Auto) 0.5 Immature Gran # (Auto) 0.01 Neut # (Auto) 2.88 Lymph # (Auto) 2.38 [place] # (Auto) 0.76 H Eos # (Auto) 0.25 Baso # (Auto) 0.03 RBC Morphology Unremarkable Sodium 136 Potassium 4.3 Chloride 103 Carbon Dioxide 28 Anion Gap 5.0 BUN 11 Creatinine 0.81 Est Cr Clr Drug Dosing 50.5 Est GFR ( Amer) 92.0 Est GFR (Non-Af Amer) 79.4 BUN/Creatinine Ratio 14.1 Glucose 82 POC Glucose 89 Calcium 8.3 L Magnesium 2.0 Medications Administered Current Inpatient Medications Acetaminophen (Tylenol) 650 mg PO Q4H PRN PRN Reason: Pain or Fever Stop: 08/28/19 06:50 Amiodarone HCl (Cordarone) 400 mg PO TIDM IFTIKHAR Stop: 08/28/19 11:59 Last Admin: 07/30/19 09:16 Dose: 400 mg Documented by: Aspirin (Ecotrin Ectab) 81 mg PO DAILY [facility] Stop: 08/28/19 08:59 Last Admin: 07/30/19 09:16 Dose: 81 mg Documented by: Atorvastatin Calcium (Lipitor) 40 mg PO HS [facility] Stop: 08/29/19 20:59 Calcium Carbonate (Os-Stan 500) 1,250 mg PO DAILY [facility] Stop: 08/28/19 08:59 Last Admin: 07/30/19 09:16 Dose: 1,250 mg Documented by: Enoxaparin Sodium (Lovenox) 30 mg SQ QAM IFTIKHAR Stop: 08/28/19 08:59 Last Admin: 07/30/19 09:16 Dose: 30 mg Documented by: Guaifenesin (Robitussin Sugar Free) 200 mg PO Q6H PRN PRN Reason: Cough Stop: 08/28/19 06:50 Promethazine HCl 12.5 mg/ (Sodium Chloride) 50.5 mls @ 202 mls/hr IV Q6H PRN PRN Reason: Nausea And Vomiting Stop: 08/28/19 06:50 Nitroglycerin (Nitrostat) 0.4 mg SL UD PRN PRN Reason: Chest Pain Stop: 08/28/19 06:50 Oxycodone HCl (Roxicodone Immediate Rel) 5 mg PO Q4H PRN PRN Reason: Pain Stop: 08/12/19 06:50 Polyethylene Glycol (Miralax Powder Packet) 17 gm PO DAILY PRN PRN Reason: Constipation Stop: 08/28/19 06:50
--- NOTE | 2019-07-30 13:47 | Neurology Progress Note ---
Date of Service July 30, 2019 Assessment & Plan (1) Syncope: 1. EEG - ordered was not convincing for seizure but will evaluate -likely tomorrow will be done 2. CT head with no acute findings 3. cardiology - amiodarone started and plan to continue aspirin only at this time -no anticoag candidate 4. fall precautions 5. PT/OT for discharge needs 6. no antiseizure medications at this time can further evaluate as outpatient with 72 hour if needed. 7. MRI brain- wo r/o stroke if any further stroke would recommend CTA head and neck - no acute stroke 8. continue aspirin 81 mg 9. cardiology for further recommendations regarding heart r/r will sign off for now call with questions concerns. no additional follow up with neurology is needed will see him PRN Supervising Physician Co-Signing Physician Notes I have seen and discussed above patient with Dr Miguel Davis, neurology I know this elderly man from prior neurologic consultations and one recent office visit in follow-up of his deep right frontal presumptively small vessel mediated infarction with left leg weakness that is now improving to the point that he is using a walker at home and needs less and less assistance. Unfortunately he had a syncopal event perhaps with a few convulsive movements but the entire situation sounds as if it was related to bowel movement induced Valsalva with presumptive bradycardia, hypotension and then syncope. There is nothing about the event that sounds like a seizure clinically and the EEG is normal Family was concerned about another stroke and the MRI shows nothing acute but does show evidence of prior infarctions and there is concern now about whether these may have been embolic this is no clear source for atherosclerotic based embolization and he does have some probable paroxysmal atrial tachycardia and possibly atrial fibrillation Dr. Ledezma has appropriately stated that he does not feel this man is an anticoagulant candidate and I agree as she is frail elderly has a propensity for falling and at this point I would simply continue antiplatelet agents but I would not add anticonvulsants to his regimen He is currently being observed on amiodarone and I will see him in follow-up neurologically as previously scheduled but there is nothing about the current admission that suggests another neurologic event either clinically or based on the imaging studies or the EEG I will sign off the case but will be happy to take a look at him again should anything change while he is here in the hospital being monitored Miguel Davis MD Leon Campos is a 89 year old male with a PMH - ischemic stroke, gait instability and leg weakness, presents to [facility] after a syncope that was observed. His daughter states the patient had gotten up to use the bathroom (bowel movement) and complained of dizziness and visual impairment. He fell into his 's arms and was not able to talk or open his eyes for 5 minutes. He could identify his and daughter in the room afterwards. There was no shaking or biting tongue. He was very weak and dizzy. Several night prior he was complaining of CP and feeling like he couldn't sleep. Since his stroke he has been ambulating with a walker and going to physical therapy and was there earlier the day of the syncope. Daughter is not in the room. He states he is doing well. denies current CP, SOB, abdominal pain, increased weakness, numbness tingling, swallowing issues, N, V, incontinence. Physical Exam Physical Exam: Gen: alert NAD lungs CTA CV regular slight pronator drift on left strength hand engineering and operations director, biceps triceps bilaterally 5/5, hip flex 5/5 bilaterally finger to nose no bi pass Results & Data Vital Signs (Past 12 Hours) Vital Signs Temp Pulse Resp BP Pulse Ox Pulse Ox 07/30/19 11:34 98 07/30/19 10:55 36.6 C 61 16 121/73 100 07/30/19 10:52 100 07/30/19 07:05 36.7 C 53 L 18 147/76 H 95 07/30/19 04:38 36.7 C 61 18 150/81 H 99 Laboratory Results Abnormal lab results 07/30/19 07/30/19 Range/Units 06:18 06:18 RBC 3.63 L (4.7-6.1) M/uL Hgb 11.5 L (14.0-18.0) g/dL Hct 34.6 L (42-52) % RDW Std Deviation 46.9 H (36.4-46.3) fL MPV 10.6 H (7.4-10.4) fL [place] # (Auto) 0.76 H (0.11-0.59) K/uL Calcium 8.3 L (8.5-10.1) mg/dl Diagnostic Findings MRI brain- No acute intracranial findings. Marked atrophy. Multiple old infarcts.
--- NOTE | 2019-07-30 18:21 | Hospitalist Progress Note ---
Date of Service July 30, 2019 Assessment & Plan (1) Syncope: Syncope Likely secondary to SVT CT Head:No acute intracranial abnormality. Age-related atrophy and chronic small vessel change. MRI brain:. No acute intracranial findings. Marked atrophy. Multiple old infarcts. EEG:This is a normal EEG during wakefulness without evidence for focal or generalized encephalopathy and without evidence for potentially epileptogenic activity Monitor on telemetry Currently in sinus Continue Amiodarone 400 mg TID Appreciate cardiology, neurology input Monitor QTC H/O CVA Continue Aspirin Started on statin Appreciate Neurology Input Hypertension BP slightly elevated Continue current meds monitor BPH Stable Chronic anemia stool Hemoccult: Negative No acute bleeding issues monitor Hyperglycemia Prediabetes Hb A1C:5.7 in May 2019 DVT Px: Lovenox SQ Code Status Full code Disposition PT/OT prior to discharge Subjective Patient is seen and examined at bedside Headache resolved Remains in sinus No new complaints Denies any chest pain, shortness of breath, dizziness, nausea, abdominal pain Discussed with family at bedside in detail Review of Systems Review of Systems: All systems reviewed & are unremarkable except as noted in HPI & below Physical Exam Physical Exam: Physical Exam: Vitals signs as noted above General Appearance:Moderately built and nourished, no apparent distress Head: normocephalic, Atraumatic Eyes: normal inspection, EOMI Neck: supple, Trachea midline Respiratory/Chest: Normal breath sounds, CTA Cardiovascular: S1, S2, No murmur Abdomen/GI:Soft, Non tender, Bowel sounds present Extremities/Musculoskelatal:normal inspection, no edema Neurologic/Psych:AAOX3, grossly no focal neurological deficits Skin: normal color, warm Results & Data Vital Signs (Past 12 Hours) Vital Signs Temp Pulse Resp BP Pulse Ox Pulse Ox 07/30/19 15:23 36.6 C 62 18 165/86 H 97 07/30/19 11:34 98 07/30/19 10:55 36.6 C 61 16 121/73 100 07/30/19 10:52 100 07/30/19 07:05 36.7 C 53 L 18 147/76 H 95 Laboratory Results Short CBC 07/30/19 Range/Units 06:18 WBC 6.31 (4.8-10.8) K/uL Hgb 11.5 L (14.0-18.0) g/dL Hct 34.6 L (42-52) % Plt Count 210 (130-400) K/uL [facility] 07/30/19 06:18 Sodium 136 Potassium 4.3 Chloride 103 Carbon Dioxide 28 BUN 11 Creatinine 0.81 Glucose 82 Calcium 8.3 L
[2019-07-30] MEDS: ATORVASTATIN 40 MG TAB PO SCH (20:54)
[2019-07-31] MEDS: AMIODARONE 200 MG TAB PO SCH ×2 (08:51→11:42)
[2019-07-31] MEDS: ASPIRIN 81 MG ECTAB PO SCH (08:51)
[2019-07-31] MEDS: CALCIUM CARBONATE 1250MG TAB PO SCH (08:51)
[2019-07-31] MEDS: ENOXAPARIN INJ 30 MG/0.3 ML SYR SQ SCH (08:52)
--- NOTE | 2019-07-31 14:11 | Cardiology Progress Note ---
Date of Service July 31, 2019 Assessment & Plan (1) Syncope: (2) Gait instability: (3) Complaints of leg weakness: (4) Ischemic stroke: (5) SVT (supraventricular tachycardia): The patient is maintaining sinus rhythm on the cardiac monitor. I am going to reduce his amiodarone to 200 mg twice daily with the eventual dosage being 200 mg daily. From a cardiac standpoint, if the patient remains stable he can be discharged tomorrow. Subjective The patient is resting comfortably. Review of Systems Review of Systems: All systems reviewed & are unremarkable except as noted in HPI & below Nothing additional Physical Exam Physical Exam: General: no acute distress and stated age Head: normocephalic, no masses, lesions, tenderness or abnormalities Eyes: conjunctiva are pink and non-injected, sclera clear Neck: supple, no adenopathy, no bruits, normal jugular venous pulse, no hepatojugular reflux Chest: normal shape and normal respiratory effort Lungs: clear to auscultation and percussion Cardiac Exam: - regular rate & rhythm, no murmurs gallops or rubs - normal S1, normal S2 Pulses: 2(+) throughout Abdomen: abdomen soft, non-tender, no abnormal masses and no hepatosplenomegaly Musculoskeletal: no gait disturbance, no joint inflammation, no deforming arthritis Extremities: no edema and no cyanosis Neuro: grossly normal exam Results & Data Vital Signs (Past 12 Hours) Vital Signs Temp Pulse Pulse Resp BP Pulse Ox 07/31/19 11:38 36.4 C L 68 16 161/79 H 96 07/31/19 07:41 36.4 C L 59 L 18 161/73 H 96 07/31/19 04:45 36.5 C 65 18 138/72 94 Medications Administered Current Inpatient Medications Acetaminophen (Tylenol) 650 mg PO Q4H PRN PRN Reason: Pain or Fever Stop: 08/28/19 06:50 Amiodarone HCl (Cordarone) 200 mg PO BIDM IFTIKHAR Stop: 08/31/19 07:59 Aspirin (Ecotrin Ectab) 81 mg PO DAILY IFTIKHAR Stop: 08/28/19 08:59 Last Admin: 07/31/19 08:51 Dose: 81 mg Documented by: Atorvastatin Calcium (Lipitor) 40 mg PO HS IFTIKHAR Stop: 08/29/19 20:59 Last Admin: 07/30/19 20:54 Dose: 40 mg Documented by: Calcium Carbonate (Os-Stan 500) 1,250 mg PO DAILY [facility] Stop: 08/28/19 08:59 Last Admin: 07/31/19 08:51 Dose: 1,250 mg Documented by: Enoxaparin Sodium (Lovenox) 30 mg SQ QAM [facility] Stop: 08/28/19 08:59 Last Admin: 07/31/19 08:52 Dose: 30 mg Documented by: Guaifenesin (Robitussin Sugar Free) 200 mg PO Q6H PRN PRN Reason: Cough Stop: 08/28/19 06:50 Promethazine HCl 12.5 mg/ (Sodium Chloride) 50.5 mls @ 202 mls/hr IV Q6H PRN PRN Reason: Nausea And Vomiting Stop: 08/28/19 06:50 Nitroglycerin (Nitrostat) 0.4 mg SL UD PRN PRN Reason: Chest Pain Stop: 08/28/19 06:50 Oxycodone HCl (Roxicodone Immediate Rel) 5 mg PO Q4H PRN PRN Reason: Pain Stop: 08/12/19 06:50 Polyethylene Glycol (Miralax Powder Packet) 17 gm PO DAILY PRN PRN Reason: Constipation Stop: 08/28/19 06:50
--- NOTE | 2019-07-31 17:14 | Hospitalist Progress Note ---
Date of Service July 31, 2019 Assessment & Plan (1) Syncope: Syncope Likely secondary to SVT CT Head:No acute intracranial abnormality. Age-related atrophy and chronic small vessel change. MRI brain:. No acute intracranial findings. Marked atrophy. Multiple old infarcts. EEG:This is a normal EEG during wakefulness without evidence for focal or generalized encephalopathy and without evidence for potentially epileptogenic activity Monitor on telemetry Currently in sinus Continue Amiodarone decreased to 200 mg twice daily Appreciate cardiology, neurology input Monitor QTC with daily EKG H/O CVA Continue Aspirin, statin Tolerating statin with no issues Appreciate Neurology Input Hypertension BP slightly elevated Continue current meds monitor BPH Stable Chronic anemia stool Hemoccult: Negative No acute bleeding issues monitor Hyperglycemia Prediabetes Hb A1C:5.7 in May 2019 DVT Px: Lovenox SQ Code Status Full code Disposition PT/OT prior to discharge Subjective Patient is seen and examined at bedside Doing much better today Remains in sinus on monitor No new complaints Amiodarone dose decreased as per cardiology today Denies any chest pain, shortness of breath, dizziness, nausea, abdominal pain Family at bedside Review of Systems Review of Systems: All systems reviewed & are unremarkable except as noted in HPI & below Physical Exam Physical Exam: Physical Exam: Vitals signs as noted above General Appearance:Moderately built and nourished, no apparent distress Head: normocephalic, Atraumatic Eyes: normal inspection, EOMI Neck: supple, Trachea midline Respiratory/Chest: Normal breath sounds, CTA Cardiovascular: S1, S2, No murmur Abdomen/GI:Soft, Non tender, Bowel sounds present Extremities/Musculoskelatal:normal inspection, no edema Neurologic/Psych:AAOX3, grossly no focal neurological deficits Skin: normal color, warm Results & Data Vital Signs (Past 12 Hours) Vital Signs Temp Pulse Resp BP Pulse Ox 07/31/19 16:00 36.4 C L 64 18 158/81 H 100 07/31/19 11:38 36.4 C L 68 16 161/79 H 96 07/31/19 07:41 36.4 C L 59 L 18 161/73 H 96
[2019-07-31] MEDS: ATORVASTATIN 40 MG TAB PO SCH (21:02)
[2019-08-01] MEDS: ASPIRIN 81 MG ECTAB PO SCH (07:49)
[2019-08-01] MEDS: CALCIUM CARBONATE 1250MG TAB PO SCH (07:49)
[2019-08-01] MEDS ORDERED: AMIODARONE 200 MG TAB PO SCH ×2 (08:00)
[2019-08-01] MEDS: ENOXAPARIN INJ 30 MG/0.3 ML SYR SQ SCH (08:54)
--- NOTE | 2019-08-01 14:01 | Cardiology Progress Note ---
Date of Service August 01, 2019 Assessment & Plan (1) Syncope: (2) Gait instability: (3) Complaints of leg weakness: (4) Ischemic stroke: (5) SVT (supraventricular tachycardia): The patient has had no arrhythmias for the past 24 hours. I spoke at length with the daughter. Earlier he was having some hallucinations and she was concerned regarding new medications. I do not believe it is from the amiodarone. Atorvastatin was started 2 days ago. I do not believe it is the atorvastatin but in this elderly patient I do not see much benefit from this medication and I will stop it. I will lower his dose of amiodarone to 200 mg daily. No additional cardiac testing is indicated. When ready, the patient can be discharged and I will arrange follow-up through our clinic. Subjective Resting comfortably. His daughter was in the room today and I discussed care and answered her questions. Review of Systems Review of Systems: Unobtainable due to cognitive status Physical Exam Physical Exam: General: no acute distress and stated age Head: normocephalic, no masses, lesions, tenderness or abnormalities Eyes: conjunctiva are pink and non-injected, sclera clear Neck: supple, no adenopathy, no bruits, normal jugular venous pulse, no hepatojugular reflux Chest: normal shape and normal respiratory effort Lungs: clear to auscultation and percussion Cardiac Exam: - regular rate & rhythm, no murmurs gallops or rubs - normal S1, normal S2 Pulses: 2(+) throughout Abdomen: abdomen soft, non-tender, no abnormal masses and no hepatosplenomegaly Musculoskeletal: no gait disturbance, no joint inflammation, no deforming arthritis Extremities: no edema and no cyanosis Neuro: grossly normal exam Results & Data Vital Signs (Past 12 Hours) Vital Signs Temp Pulse Resp BP Pulse Ox 08/01/19 11:44 36.5 C 62 18 167/78 H 99 08/01/19 08:00 36.4 C L 71 16 137/84 98 08/01/19 03:52 36.6 C 63 20 158/82 H 97 Medications Administered Current Inpatient Medications Acetaminophen (Tylenol) 650 mg PO Q4H PRN PRN Reason: Pain or Fever Stop: 08/28/19 06:50 Amiodarone HCl (Cordarone) 200 mg PO DAILY IFTIKHAR Stop: 09/01/19 08:59 Aspirin (Ecotrin Ectab) 81 mg PO DAILY [facility] Stop: 08/28/19 08:59 Last Admin: 08/01/19 07:49 Dose: 81 mg Documented by: Calcium Carbonate (Os-Stan 500) 1,250 mg PO DAILY [facility] Stop: 08/28/19 08:59 Last Admin: 08/01/19 07:49 Dose: 1,250 mg Documented by: Enoxaparin Sodium (Lovenox) 30 mg SQ QAM [facility] Stop: 08/28/19 08:59 Last Admin: 08/01/19 08:54 Dose: 30 mg Documented by: Guaifenesin (Robitussin Sugar Free) 200 mg PO Q6H PRN PRN Reason: Cough Stop: 08/28/19 06:50 Promethazine HCl 12.5 mg/ (Sodium Chloride) 50.5 mls @ 202 mls/hr IV Q6H PRN PRN Reason: Nausea And Vomiting Stop: 08/28/19 06:50 Nitroglycerin (Nitrostat) 0.4 mg SL UD PRN PRN Reason: Chest Pain Stop: 08/28/19 06:50 Oxycodone HCl (Roxicodone Immediate Rel) 5 mg PO Q4H PRN PRN Reason: Pain Stop: 08/12/19 06:50 Polyethylene Glycol (Miralax Powder Packet) 17 gm PO DAILY PRN PRN Reason: Constipation Stop: 08/28/19 06:50
--- NOTE | 2019-08-01 16:55 | Hospitalist Progress Note ---
Date of Service August 01, 2019 Assessment & Plan (1) Syncope: Syncope Likely secondary to SVT CT Head:No acute intracranial abnormality. Age-related atrophy and chronic small vessel change. MRI brain:. No acute intracranial findings. Marked atrophy. Multiple old infarcts. EEG:This is a normal EEG during wakefulness without evidence for focal or generalized encephalopathy and without evidence for potentially epileptogenic activity Monitor on telemetry Currently in sinus Continue Amiodarone decreased to 200 mg daily Appreciate cardiology, neurology input Monitor QTC with daily EKG Visual Hallucinations Likely due to delirium/Poor sleep, Amiodarone less likely Reorient frequently Monitor H/O CVA Continue Aspirin, statin Tolerating statin with no issues Appreciate Neurology Input Hypertension BP better Continue current meds monitor BPH Stable Chronic anemia stool Hemoccult: Negative No acute bleeding issues monitor Hyperglycemia Prediabetes Hb A1C:5.7 in May 2019 DVT Px: Lovenox SQ Code Status Full code Disposition PT/OT: Outpatient therapy Subjective Patient is seen and examined at bedside Family reports that patient had visual hallucinations overnight Had poor sleep overnight No other complaints Denies photosensitivity, blurry or double vision Family at bedside Discussed with Cardiology today Also denies any chest pain, shortness of breath, dizziness, nausea, abdominal pain Review of Systems Review of Systems: All systems reviewed & are unremarkable except as noted in HPI & below Results & Data Vital Signs (Past 12 Hours) Vital Signs Temp Pulse Resp BP BP Pulse Ox 08/01/19 15:27 36.7 C 66 18 114/68 97 08/01/19 11:44 36.5 C 62 18 167/78 H 99 08/01/19 08:00 36.4 C L 71 16 137/84 98
[2019-08-02] MEDS: CALCIUM CARBONATE 1250MG TAB PO SCH (07:33)
[2019-08-02] MEDS: ASPIRIN 81 MG ECTAB PO SCH (07:33)
[2019-08-02] MEDS: ENOXAPARIN INJ 30 MG/0.3 ML SYR SQ SCH (07:33)
[2019-08-02] MEDS ORDERED: AMIODARONE 200 MG TAB PO SCH (09:00)
[2019-08-02 11:54] VITALS: BP 158/84; TEMP 97.7; O2SAT 99
--- NOTE | 2019-08-02 14:18 | Hospitalist Progress Note ---
Date of Service August 02, 2019 Assessment & Plan (1) Syncope: Syncope Likely secondary to SVT CT Head:No acute intracranial abnormality. Age-related atrophy and chronic small vessel change. MRI brain:. No acute intracranial findings. Marked atrophy. Multiple old infarcts. EEG:This is a normal EEG during wakefulness without evidence for focal or generalized encephalopathy and without evidence for potentially epileptogenic activity Monitor on telemetry Currently in sinus Continue Amiodarone decreased to 200 mg daily Appreciate cardiology, neurology input Monitor QTC with daily EKG: QTC wnl Needs follow up with Cardiology upon discharge Visual Hallucinations Likely due to delirium/Poor sleep, Amiodarone less likely Reorient frequently Monitor H/O CVA Continue Aspirin Tolerating statin with no issues Appreciate Neurology Input Hypertension Stable Continue current meds monitor BPH Stable Chronic anemia stool Hemoccult: Negative No acute bleeding issues monitor Hyperglycemia Prediabetes Hb A1C:5.7 in May 2019 DVT Px: Lovenox SQ Code Status Full code Disposition PT/OT: Outpatient therapy Plan to discharge home with Home Health today Subjective Patient is seen and examined at bedside Doing well today In Sinus Transient hallucinations as per family Family at bedside Denies any chest pain, shortness of breath, dizziness, nausea, abdominal pain Planned to be discharged home today Review of Systems Review of Systems: All systems reviewed & are unremarkable except as noted in HPI & below Physical Exam Physical Exam: Physical Exam: Vitals signs as noted above General Appearance:Moderately built and nourished, no apparent distress Head: normocephalic, Atraumatic Eyes: normal inspection, EOMI Neck: supple, Trachea midline Respiratory/Chest: Normal breath sounds, CTA Cardiovascular: S1, S2, No murmur Abdomen/GI:Soft, Non tender, Bowel sounds present Extremities/Musculoskelatal:normal inspection, no edema Neurologic/Psych:AAOX3, grossly no focal neurological deficits Skin: normal color, warm Results & Data Vital Signs (Past 12 Hours) Vital Signs Temp Pulse Resp BP Pulse Ox 08/02/19 11:53 36.5 C 63 18 158/84 H 99 08/02/19 07:30 36.6 C 65 16 156/83 H 97 08/02/19 04:37 36.5 C 64 18 151/86 H 97
--- NOTE | 2019-08-02 14:25 | Discharge Summary ---
Date of Service August 02, 2019 Admission HPI Per Admitting Provider History obtained from patient, family, and records. History somewhat limited from patient secondary to language barrier. Medical history significant for CVA, hypertension, BPH, chronic anemia (baseline hemoglobin of 12). Recent confinement May 2019 for acute lacunar ischemic stroke presenting as bilateral leg weakness. The last 2 days, patient noted intermittent shortness of breath symptoms without chest pain. Last night, patient was walking back to his bedroom after using the bathroom when he felt dizzy, lightheaded. Patient passed out and fell backwards on his bed. Teeth were noted to be clenched as per patient's daughter. No actual GTC seizures, tongue biting/incontinence symptoms noted. Patient unresponsive for about 5 minutes. Later complaining of achy headache symptoms. At the ER, initial rhythm was SVT, cardiac rate 140s as per ER provider. SVT terminated by adenosine. NSVT episode subsequently noted at the ER. IV Amiodarone started at the emergency room for wide-complex tachycardia. Medical History as above Surgical History : None Family History : Hypertension Personal/Social history : Non-smoker, no EtOH intake, retired [employer] Admission Exam Per Admitting Provider GENERAL: Comfortable, no respiratory distress SKIN: Pallor , warm HEENT: Partial alopecia, pale palpebral conjunctivae, no ptosis, dry buccal mucosa NECK : Supple, no tenderness CHEST : CTA, no tenderness HEART : RRR, no obvious murmurs ABDOMEN: Soft, nontender RECTAL : Intact sphincter, brown stool (FOBT negative) EXTREMITIES : No LE swelling/tenderness, no other conspicuous deformities noted NEUROLOGIC : Coherent, no facial asymmetry, no other gross focality Principal Diagnosis Supraventricular tachycardia Syncopal episode Discharge Data Allergies Allergy/AdvReac Type Severity Reaction Status Date / Time No Known Allergies Allergy Verified 07/29/19 02:57 Consultations 07/29/19 06:51 Consult Cardiology Routine 07/29/19 11:57 Consult Neurology Routine 07/31/19 12:15 Consult Patient Rep / Service Excellence [Consult Patient Services] Routine Procedures Performed CT Head: No acute intracranial abnormality. Age-related atrophy and chronic small vessel change. MRI brain: No acute intracranial findings. Marked atrophy. Multiple old infarcts. EEG: This is a normal EEG during wakefulness without evidence for focal or generalized encephalopathy and without evidence for potentially epileptogenic activity Ordered Studies 07/29/19 03:16 CT angio chest PE protocol Urgent 07/29/19 04:19 CT head/brain wo con Urgent 07/29/19 16:28 MR brain wo con Routine Hospital Course (1) Syncope: Syncope Likely secondary to SVT CT Head:No acute intracranial abnormality. Age-related atrophy and chronic small vessel change. MRI brain:. No acute intracranial findings. Marked atrophy. Multiple old infarcts. EEG:This is a normal EEG during wakefulness without evidence for focal or generalized encephalopathy and without evidence for potentially epileptogenic activity Monitor on telemetry Currently in sinus Continue Amiodarone decreased to 200 mg daily Appreciate cardiology, neurology input Monitor QTC with daily EKG: QTC wnl Needs follow up with Cardiology upon discharge Visual Hallucinations Likely due to delirium/Poor sleep, Amiodarone less likely Reorient frequently Monitor H/O CVA Continue Aspirin Tolerating statin with no issues Appreciate Neurology Input Hypertension Stable Continue current meds monitor BPH Stable Chronic anemia stool Hemoccult: Negative No acute bleeding issues monitor Hyperglycemia Prediabetes Hb A1C:5.7 in May 2019 DVT Px: Lovenox SQ Code Status Full code Disposition PT/OT: Outpatient therapy Plan to discharge home with Home Health today Total Time Total Time Spent Total Time Spent (In Minutes): 38 minutes Total Time Includes: Examination of the Patient, Discharge Planning, Medication Reconciliation, Communication With Other Providers and Other Discharge Plan Discharge Items Patient Disposition: Home - Home Health Services Reason For Visit: WIDE COMPLEX TACHYCARDIA Discharge Diagnosis: Supraventricular tachycardia Syncopal episode Activity: Resume your previous activity Exercise/Sports: Gradually increase as tolerated Non-emergency contact: Primary Care Provider and [employer] Brakeman Call non-emergency contact if: you have any medication questions, your symptoms worsen, your pain is not controlled, your pain is worsening, your pain is unusual for you, your pain is concerning for you and you have a fever Follow-up/Referrals: Gabe Veloz MD [Primary Care Provider] - Diet: Heart Healthy Addtl Attending Provider Instructions: Follow-up with your primary care physician Dr. Gabriella Quezada on August 06, 2019 at 11:25 AM Follow-up with your pump rebuilder Dr. Ledezma on August 16, 2019 at 8:00 AM Seek immediate medical attention if your symptoms reoccur or worsen Pending Studies at Discharge: No Stand-Alone Forms: [employer], Smoking Cessation Medications and DC Order Prescriptions: New amiodarone 200 mg Tablet 200 mg PO DAILY Qty: 30 RF: 1 Continued calcium carbonate [Calcium 600] 600 mg calcium (1,500 mg) Tablet 600 mg PO DAILY RF: 0 Men's 50 Plus Multivitamin 400-20-370 mcg Tablet 1 tab PO DAILY RF: 0 aspirin [Aspir-81] 81 mg Tablet,Delayed Release (Dr/Ec) 81 mg PO DAILY RF: 0 polyethylene glycol 3350 [Miralax] 17 gram/dose Powder 17 g PO DAILY PRN (Reason: Constipation) RF: 0 Discharge Orders: Discharge Order (Routine); Ordered 08/02/19 Ordered By: Gabe Shaw/Other Patient Handouts: Syncope, Syncope Causes, Dizziness Balance Probs Fainting Admission Data Admit Date/Time: 07/29/19 05:45 Attending Provider: Gabe Veloz Admit Provider: Gabe Veloz Primary Care Provider: Gabe Veloz Other Providers: Gabriella Quezada ; Charan Cerda ; Musa Galicia ; Miguel Davis ; Caitlin,Home Health Other Interventions: Discharge Summary Assessment (RN) Last Done: 08/02/19 14:32 DC Date/Time DO NOT enter until pt leaves facility: 08/02/19 15:21
[2019-08-02 14:34] VITALS: PULSE 65
--- NOTE | 2019-08-02 14:55 | Cardiology Progress Note ---
Date of Service August 02, 2019 Assessment & Plan (1) Syncope: (2) SVT (supraventricular tachycardia): 89-year-old male with a past medical history of an ischemic stroke, gait instability and leg weakness who presented to [facility] after a transient syncopal episode observed by family. Arrhythmia had been observed including narrow complex tachycardia suggestive of possible SVT, and a transient episode of wide-complex tachycardia perhaps ventricular in etiology versus supra ventricular with apparent conduction. Patient stable from cardiac perspective for discharge on aspirin 81 mg daily and amiodarone 200 mg daily. Subjective CC: follow up syncope Subjective: Patient without complaints. Telemetry reveals stable sinus rhythm in the range of 60 to 70 bpm. Review of Systems Review of Systems: All systems reviewed & are unremarkable except as noted in HPI & below Physical Exam Physical Exam: Temp Pulse Resp BP Pulse Ox 36.5 C 65 18 158/84 H 99 08/02/19 14:32 08/02/19 14:32 08/02/19 14:32 08/02/19 14:32 08/02/19 14:32 Constitutional: WD/WN, vitals as above Respiratory: normal respiratory effort, lungs clear to auscultation Cardiovascular: RRR, no murmur, no edema Gastrointestinal (Abdomen): normal bowel sounds, soft, nontender, no hepatosplenomegaly Neurologic: PERRL, EOMI, accommodation nl, no face palsy, no dysarthria Results & Data Vital Signs (Past 12 Hours) Vital Signs Temp Pulse Pulse Resp BP BP Pulse Ox 08/02/19 14:32 36.5 C 65 63 18 158/84 H 168/80 H 99 08/02/19 11:53 36.5 C 63 18 158/84 H 99 08/02/19 07:30 36.6 C 65 16 156/83 H 97 08/02/19 04:37 36.5 C 64 18 151/86 H 97 Laboratory Results Intake and Output 08/01/19 08/02/19 08/02/19 22:59 06:59 14:59 Intake Total 600 / 720 320 / 320 Balance 600 / 720 320 / 320 Intake: Oral 600 / 720 320 / 320 Other: Weight 55.2 kg Patient Weight 08/03/19 06:59 Weight 55.2 kg Diagnostic Findings TSH performed 07/29/2019 was within normal limits at 1.36 IU/L Liver function test performed 07/29/2019 were within normal limits with normal bilirubin, AST level of 9 units/L, ALT of 17 units/L, alkaline phosphatase of 49 units/L. EKG performed today 08/02/2019 at 6:32 AM revealed normal sinus rhythm at 63 bpm, normal EKG
== END 2019-08-02 15:21 | disposition home health service (06) | DRG 309 ==
LOC: ED 02:21 → 2S 05:45 → SUATTDRO 05:45 → SUPCPDRO 05:45 → 2S 06:27